=== PATIENT | female | born 1940 | race Caucasian/White ===

== ENCOUNTER 2016-10-12 10:46 | Inpatient (IN) | payer OTHER ==
[2016-10-12 11:38] LABS: MANUAL DIFF NEEDED? NO
[2016-10-12 11:38] LABS: URINE CULTURE PL NEEDED? NO; URINE SOURCE CLEAN CATCH
[2016-10-12 11:40] LABS: BASO% 0.3 % (0.0-0.8); EOS# 0.12 X1000 (0.0-0.7); EOS% 0.9 % (0.0-10.0); HEMATOCRIT 39.4 % (37.0-47.0); HEMOGLOBIN 13.1 g/dL (12.0-16.0); IMM GRAN# 0.02 X1000 (0.0-0.04); IMM GRAN% 0.2 % (0.0-0.5); LYMPH# 1.86 X1000 (1.2-3.4); LYMPH% 14.7 % (20.5-51.1); MCH 31.3 PG (27-31); MCHC 33.2 g/dL (33-37); MONO# 0.43 X1000 (0.11-0.59); MONO% 3.4 % (1.7-9.3); MPV 9.8 FL (7.4-10.4); NEUT% 80.5 % (42.2-75.2); PLT 285 X1000 (130-400); RBC 4.19 XMIL (4.2-5.4)
--- NOTE | 2016-10-12 11:40 | PROVIDER DOCUMENTATION ---
HPI-General Adult - General Chief Complaint: Altered Mental Status Stated Complaint: BODY SHAKING Time Seen by Provider: 10/12/16 11:20 Source: patient Allergies/Adverse Reactions: Patient Allergies Allergy/AdvReac Type Severity Reaction Status Date / Time No Known Allergies Allergy Verified 10/12/16 11:13 Home Medications: Home Medication List Medication Instructions Recorded Confirmed Last Taken Type Diclofenac Sodium [Voltaren] 75 mg PO BID 09/22/16 09/22/16 Unknown History Levothyroxine [Synthroid] 150 mg PO DAILY 09/22/16 09/22/16 Unknown History Multivitamins/Minerals [Centrum 1 each PO DAILY 09/22/16 09/22/16 Unknown History Chewable] SIMVAstatin [Zocor] 40 mg PO QHS 09/22/16 09/22/16 09/21/16 21:00 History Trazodone [Desyrel] 100 mg PO QHS 09/22/16 09/22/16 09/21/16 21:00 History Buspirone [Buspar] 15 mg PO BID #60 tablet 09/25/16 Unknown Rx Morphine E.r. [Ms Contin] 15 mg PO BID PRN #45 tablet 09/25/16 Unknown Rx Oxycodone/APAP 10 mg/325 mg 10 mg PO Q6H PRN PRN #60 tablet 09/25/16 Unknown Rx [Percocet-10] - History of Present Illness -Gen Adult Nature of Presenting Problems: Pt. is 75 yof that presents with c/o AMS. Pt. was discharged from a rehab facility on Sunday and last night she began acting strange to her family. Pt. reports she was in rehab to help her with ambulation. Pt. reports now she is shaking and having trouble staying awake. Pt. is on multiple altering medications. Location of Pain/Injury: reports: back. denies: head, face, mouth, neck, chest , upper extremity, hand(s), abdomen, pelvis, genitalia, lower extremity, feet, upper body, lower body, generalized Pain Radiation: reports: no radiation Quality of Pain: reports: aching. denies: burning, cramping, dull, fullness, indigestion, pressure, sharp, stabbing, tearing, throbbing, tightness Severity: reports: moderate. denies: mild, severe Onset/Duration: reports: abrupt, 2 days ago (AMS began two days ago, back pain is chronic) Timing: reports: still present. denies: improving, gone now, resolved prior to arrival, intermittent, constant, changing over time, getting worse Context/Activities at Onset: reports: none. denies: recent emotional stress, recent physical stress, recent trauma history, possible bad food, cold exposure , out of country travel Modifying Factors: improves with: nothing Associated Symptoms: reports: back/neck pain, weakness, trouble walking, other ( AMS). denies: anxiety, arm pain, chest pain, constipation, cough, diaphoresis, diarrhea, dizziness, EENT symptoms, fatigue, fever/chills, genitourinary problems, headaches, heartburn, joint pain, loss of appetite, malaise, muscle aches, sinus congestion/drainage, nausea, rash, seizure, shortness of breath, sensory/motor loss, pain with inspiration, swelling/mass in abdomen, syncope, vomiting Similar Symptoms Previously?: Yes Recently seen or treated by another doctor?: Yes Review of Systems - Adult - REVIEW OF SYSTEMS - ADULT Constitutional: reports: see HPI. denies: chills, fever, fatique Eyes: reports: see HPI. denies: discharge, blurred vision, double vision Ears, Nose, Mouth & Throat: reports: see HPI. denies: ear pain, hearing loss, sinus problem, nose pain, loose teeth, mouth/dental pain, throat pain, throat swelling Cardiovascular: reports: see HPI. denies: chest pain, irregular heart rate, orthopnea, palpitations, syncope Respiratory: reports: see HPI. denies: cough, dyspnea on exertion, pleurisy, shortness of breath, wheezing Gastrointestinal: reports: see HPI. denies: abdominal pain, hematemesis, diarrhea, nausea, vomiting Genitourinary: reports: see HPI. denies: dysuria, discharge, hematuria, hesitency, urgency Musculoskeletal: reports: see HPI, back pain. denies: bone pain, joint pain, muscle aches, neck pain Integumentary: reports: see HPI. denies: hives, itching, rash, skin thickening Neurological: reports: see HPI. denies: ataxia, headache/migraines, numbness, paresthesia, seizure, tremors Psychiatric: reports: see HPI, other (Failure to thrive). denies: anxiety, depression, emotional problems, insomnia, panic attacks, suicidal thoughts Past History - Adult - PAST MEDICAL HISTORY-ADULT Review of Records: reports: Old Records Reviewed, Nursing Assessment Review, Medications Reviewed, Social history reviewed & non-contributory. Major Childhood Illnesses: reports: denies history Cardiovascular: reports: HTN Respiratory: reports: denies history Gastrointestinal: reports: denies history Obstetrical/Gynecological: reports: denies history Genitourinary: reports: denies history Musculoskeletal: reports: denies history Neurological: reports: denies history Endocrine/Immune: reports: Diabetes Other Conditions: reports: denies history - PRIOR SURGERIES/PROCEDURES Surgical/Procedure History: reports: hysterectomy - IMMUNIZATION STATUS Childhood Immunizations: See Nurse Assessment Flu Vaccine: See Nurse Assessment - FAMILY HISTORY Family History: reviewed, not pertinent - SOCIAL HISTORY Smoking: non-smoker Physical Exam-General - PHYSICAL EXAM-ADULT Initial Vital Signs Reviewed: Yes - CONSTITUTIONAL General Appearance: mild distress, lethargic, slow to respond. negative: cachetic, anxious, obtunded, combative - EYES Eyes: PERRL/EOMI, pink conjunctivae. negative: conjuctival exudate, sclera injected, scleral icterus, subconjunctival hemorrhage - HEAD, EARS, NOSE, MOUTH & THROAT HENMT: normocephalic/atraumatic, moist mucous membranes. negative: angioedema, frontal tenderness, maxillary tenderness - NECK Neck: non-tender, full range of motion, supple, normal inspection. negative: lymphadenopathy, trachial deviation, thyromegaly - RESPIRATORY Respiratory: lungs clear, normal breath sounds. negative: crackles, rales, rhonchi, stridor, wheezing - CARDIOVASCULAR Cardiovascular: regular rate, rhythm, no edema, no JVD, no murmur, bradycardia. negative: extra beats, friction rub, irregularly irregular - CHEST (BREASTS) Chest/Breast: deferred - GASTROINTESTINAL (ABDOMEN) Abdominal Exam: normal bowel sounds, non tender, soft. negative: distended, guarding, rigid, rebound, tenderness, hernia, mass - GENITOURINARY Female Genitalia/Pelvic Exam: deferred Rectal Exam: deferred Hemoccult Exam: deferred - LYMPHATIC Lymphatic: no adenopathy. negative: axilla node tender, cervical node tenderness - MUSCULOSKELETAL Back Exam: normal inspection, no CVA tenderness, no vertebral tenderness, decreased range of motion. negative: swelling, vertebral tenderness Extremity: normal range of motion, non-tender, normal inspection. negative: deformity, erythema, inflammation, swelling, tenderness Peripheral Pulses: radial (R): 2+, radial (L): 2+ - SKIN Integumentary: normal color, normal turgor, warm/dry. negative: cyanosis, diaphoresis, ecchymosis, erythema, jaundice, mottled, pallor, petechiae, purpura , rash, swelling, tenderness - NEUROLOGIC Neurologic: grossly normal, no motor/sensory deficits. negative: aphasia, facial droop, focal weakness, motor weakness, sensory deficit - PSYCHIATRIC Psych/Mental Status: normal mood/affect, normal thought content, normal thought process, oriented x 3. negative: anxious, paranoid, tearful Progress - PLAN OF CARE/RESULTS Progress/Plan/Lab Results: Dr. Tovar at bedside Discussed results and plan of care with patient. Patient agrees with plan and verbalizes understanding. Vital Signs Temp Pulse Resp BP Pulse Ox 10/12/16 13:23 55 L 21 94/55 100 10/12/16 13:16 49 L 14 87/49 100 10/12/16 13:10 49 L 16 105/42 99 10/12/16 13:04 97.5 F L 10/12/16 13:01 49 L 17 98/45 100 10/12/16 12:53 49 L 18 133/33 100 10/12/16 12:26 49 L 19 94/40 99 10/12/16 12:23 49 L 12 102/36 94 L 10/12/16 12:08 49 L 17 77/58 97 10/12/16 11:23 50 L 13 110/65 99 10/12/16 11:01 97.0 F L 50 L 16 088/041 100 No Known Allergies Allergy (Verified 10/12/16 11:13) Diclofenac Sodium [Voltaren] 75 mg PO BID 09/22/16 Levothyroxine [Synthroid] 150 mg PO DAILY 09/22/16 Multivitamins/Minerals [Centrum Chewable] 1 each PO DAILY 09/22/16 SIMVAstatin [Zocor] 40 mg PO QHS 09/22/16 Trazodone [Desyrel] 100 mg PO QHS 09/22/16 Buspirone [Buspar] 15 mg PO BID #60 tablet 09/25/16 Morphine E.r. [Ms Contin] 15 mg PO BID PRN #45 tablet 09/25/16 Oxycodone/APAP 10 mg/325 mg [Percocet-10] 10 mg PO Q6H PRN PRN #60 tablet Laboratory 10/12/16 10/12/16 10/12/16 12:31 12:31 11:29 WBC RBC Hgb Hct MCV MCH MCHC RDW Std Deviation Plt Count MPV Immature Gran % (Auto) Neut % (Auto) Lymph % (Auto) Worth % (Auto) Eos % (Auto) Baso % (Auto) Immature Gran # (Auto) Neut # (Auto) Lymph # (Auto) Worth # (Auto) Eos # (Auto) Baso # (Auto) Sodium Potassium Chloride Carbon Dioxide Anion Gap BUN Creatinine Estimated GFR/1.73 m2 BUN/Creatinine Ratio Glucose Calculated Osmolality Calcium Total Bilirubin AST ALT Alkaline Phosphatase Creatine Kinase 191 H Creatine Kinase Index 1.3 CK-MB (CK-2) 2.45 Troponin T < 0.010 Total Protein Albumin Globulin Albumin/Globulin Ratio TSH 0.82 Urine Source Urine Color Urine Clarity Urine pH Ur Specific [place] Urine Protein Urine Ketones Urine Blood Urine Nitrite Urine Bilirubin Urine Urobilinogen Urine Microscopic RBC Urine WBC Urine Microscopic WBC Ur Epithelial Cells Urine Glucose Urine Opiates Screen Ur Oxycodone Screen Urine Methadone Screen Ur Barbituates Screen Ur Tricyclics Screen Ur Phencyclidine Scrn Ur Amphetamines Screen U Methamphetamines Scrn Urine MDMA Screen U Benzodiazepines Scrn Urine Cocaine Screen U Cannabinoids Screen 10/12/16 10/12/16 10/12/16 11:29 11:29 11:23 WBC 12.67 H RBC 4.19 L Hgb 13.1 Hct 39.4 MCV 94.0 MCH 31.3 H MCHC 33.2 RDW Std Deviation 12.6 Plt Count 285 MPV 9.8 Immature Gran % (Auto) 0.2 Neut % (Auto) 80.5 H Lymph % (Auto) 14.7 L Worth % (Auto) 3.4 Eos % (Auto) 0.9 Baso % (Auto) 0.3 Immature Gran # (Auto) 0.02 Neut # (Auto) 10.20 H Lymph # (Auto) 1.86 Worth # (Auto) 0.43 Eos # (Auto) 0.12 Baso # (Auto) 0.04 Sodium Potassium Chloride Carbon Dioxide Anion Gap BUN Creatinine Estimated GFR/1.73 m2 BUN/Creatinine Ratio Glucose Calculated Osmolality Calcium Total Bilirubin AST ALT Alkaline Phosphatase Creatine Kinase Creatine Kinase Index CK-MB (CK-2) Troponin T Total Protein Albumin Globulin Albumin/Globulin Ratio TSH Urine Source CLEAN CATCH Urine Color YELLOW Urine Clarity CLEAR Urine pH 5.0 Ur Specific [place] 1.020 Urine Protein TRACE A Urine Ketones NEGATIVE Urine Blood NEGATIVE Urine Nitrite NEGATIVE Urine Bilirubin NEGATIVE Urine Urobilinogen NORMAL Urine Microscopic RBC Not Reportable Urine WBC TRACE A Urine Microscopic WBC <10 Ur Epithelial Cells <10 Urine Glucose NEGATIVE Urine Opiates Screen PRESUMPTIVE POSITIVE A Ur Oxycodone Screen PRESUMPTIVE POSITIVE A Urine Methadone Screen NONE DETECTED Ur Barbituates Screen NONE DETECTED Ur Tricyclics Screen NONE DETECTED Ur Phencyclidine Scrn NONE DETECTED Ur Amphetamines Screen NONE DETECTED U Methamphetamines Scrn NONE DETECTED Urine MDMA Screen NONE DETECTED U Benzodiazepines Scrn NONE DETECTED Urine Cocaine Screen NONE DETECTED U Cannabinoids Screen NONE DETECTED 10/12/16 11:23 WBC RBC Hgb Hct MCV MCH MCHC RDW Std Deviation Plt Count MPV Immature Gran % (Auto) Neut % (Auto) Lymph % (Auto) Worth % (Auto) Eos % (Auto) Baso % (Auto) Immature Gran # (Auto) Neut # (Auto) Lymph # (Auto) Worth # (Auto) Eos # (Auto) Baso # (Auto) Sodium 135 L Potassium 3.7 Chloride 96 L Carbon Dioxide 28 Anion Gap 11 BUN 38 H Creatinine 1.8 H Estimated GFR/1.73 m2 27 BUN/Creatinine Ratio 21 Glucose 133 H Calculated Osmolality 281 Calcium 9.3 Total Bilirubin 0.40 AST 20 ALT 28 Alkaline Phosphatase 92 Creatine Kinase Creatine Kinase Index CK-MB (CK-2) Troponin T Total Protein 7.4 Albumin 3.7 Globulin 4.0 Albumin/Globulin Ratio 1.0 TSH Urine Source Urine Color Urine Clarity Urine pH Ur Specific [place] Urine Protein Urine Ketones Urine Blood Urine Nitrite Urine Bilirubin Urine Urobilinogen Urine Microscopic RBC Urine WBC Urine Microscopic WBC Ur Epithelial Cells Urine Glucose Urine Opiates Screen Ur Oxycodone Screen Urine Methadone Screen Ur Barbituates Screen Ur Tricyclics Screen Ur Phencyclidine Scrn Ur Amphetamines Screen U Methamphetamines Scrn Urine MDMA Screen U Benzodiazepines Scrn Urine Cocaine Screen U Cannabinoids Screen Orders Category Date Time Status Saline Loc NOW Care 10/12/16 11:21 Active CHEST-2 VIEWS [RAD] Stat Exams 10/12/16 11:36 Completed HEAD W/O CONTRAST [CT] Stat Exams 10/12/16 11:22 Draft BLOOD CULTURE [BLDCUL] Stat Lab 10/12/16 13:39 Ordered CBC WITH ELECTRONIC DIFF [HEME] Stat Lab 10/12/16 11:23 Completed CK PROFILE [SP CHEM] Stat Lab 10/12/16 12:31 Completed COMPREHENSIVE METABOLIC PANEL [CHEM] Stat Lab 10/12/16 11:23 Completed LACTATE, PLASMA [CHEM] Stat Lab 10/12/16 13:39 Ordered PRO B-NATRIURETIC PEPTIDE Stat Lab 10/12/16 13:39 Ordered TROPONIN T Stat Lab 10/12/16 12:31 Completed TSH Stat Lab 10/12/16 11:29 Completed UDS [URINE DRUG SCREEN PL] Stat Lab 10/12/16 11:[address] W/POSS RFLX CULT [URINALYSIS] Stat Lab 10/12/16 11:29 Completed 0.9% Sodium Chloride Inj [Ns] 1,000 ml Med 10/12/16 12:24 Discontinued IV 999 mls/hr 0.9% Sodium Chloride Inj [Ns] 500 ml Med 10/12/16 13:37 Discontinued .ROUTE As Directed 0.9% Sodium Chloride Inj [Ns] 500 ml Med 10/12/16 13:38 Active IV 999 mls/hr EKG [EKG] Stat Ther 10/12/16 11:36 Draft Laboratory Tests 10/12/16 10/12/16 10/12/16 11:23 11:23 11:29 WBC 12.67 H RBC 4.19 L Hgb 13.1 Hct 39.4 MCV 94.0 MCH 31.3 H MCHC 33.2 RDW Std Deviation 12.6 Plt Count 285 MPV 9.8 Immature Gran % (Auto) 0.2 Neut % (Auto) 80.5 H Lymph % (Auto) 14.7 L Worth % (Auto) 3.4 Eos % (Auto) 0.9 Baso % (Auto) 0.3 Immature Gran # (Auto) 0.02 Neut # (Auto) 10.20 H Lymph # (Auto) 1.86 Worth # (Auto) 0.43 Eos # (Auto) 0.12 Baso # (Auto) 0.04 Sodium 135 L Potassium 3.7 Chloride 96 L Carbon Dioxide 28 Anion Gap 11 BUN 38 H Creatinine 1.8 H Estimated GFR/1.73 m2 27 BUN/Creatinine Ratio 21 Glucose 133 H Calculated Osmolality 281 Calcium 9.3 Total Bilirubin 0.40 AST 20 ALT 28 Alkaline Phosphatase 92 Creatine Kinase Creatine Kinase Index CK-MB (CK-2) Troponin T Total Protein 7.4 Albumin 3.7 Globulin 4.0 Albumin/Globulin Ratio 1.0 TSH Urine Source CLEAN CATCH Urine Color YELLOW Urine Clarity CLEAR Urine pH 5.0 Ur Specific [place] 1.020 Urine Protein TRACE A Urine Ketones NEGATIVE Urine Blood NEGATIVE Urine Nitrite NEGATIVE Urine Bilirubin NEGATIVE Urine Urobilinogen NORMAL Urine Microscopic RBC Not Reportable Urine WBC TRACE A Urine Microscopic WBC <10 Ur Epithelial Cells <10 Urine Glucose NEGATIVE Urine Opiates Screen Ur Oxycodone Screen Urine Methadone Screen Ur Barbituates Screen Ur Tricyclics Screen Ur Phencyclidine Scrn Ur Amphetamines Screen U Methamphetamines Scrn Urine MDMA Screen U Benzodiazepines Scrn Urine Cocaine Screen U Cannabinoids Screen 10/12/16 10/12/16 10/12/16 11:29 11:29 12:31 WBC RBC Hgb Hct MCV MCH MCHC RDW Std Deviation Plt Count MPV Immature Gran % (Auto) Neut % (Auto) Lymph % (Auto) Worth % (Auto) Eos % (Auto) Baso % (Auto) Immature Gran # (Auto) Neut # (Auto) Lymph # (Auto) Worth # (Auto) Eos # (Auto) Baso # (Auto) Sodium Potassium Chloride Carbon Dioxide Anion Gap BUN Creatinine Estimated GFR/1.73 m2 BUN/Creatinine Ratio Glucose Calculated Osmolality Calcium Total Bilirubin AST ALT Alkaline Phosphatase Creatine Kinase 191 H Creatine Kinase Index 1.3 CK-MB (CK-2) 2.45 Troponin T Total Protein Albumin Globulin Albumin/Globulin Ratio TSH 0.82 Urine Source Urine Color Urine Clarity Urine pH Ur Specific [place] Urine Protein Urine Ketones Urine Blood Urine Nitrite Urine Bilirubin Urine Urobilinogen Urine Microscopic RBC Urine WBC Urine Microscopic WBC Ur Epithelial Cells Urine Glucose Urine Opiates Screen PRESUMPTIVE POSITIVE A Ur Oxycodone Screen PRESUMPTIVE POSITIVE A Urine Methadone Screen NONE DETECTED Ur Barbituates Screen NONE DETECTED Ur Tricyclics Screen NONE DETECTED Ur Phencyclidine Scrn NONE DETECTED Ur Amphetamines Screen NONE DETECTED U Methamphetamines Scrn NONE DETECTED Urine MDMA Screen NONE DETECTED U Benzodiazepines Scrn NONE DETECTED Urine Cocaine Screen NONE DETECTED U Cannabinoids Screen NONE DETECTED 10/12/16 12:31 WBC RBC Hgb Hct MCV MCH MCHC RDW Std Deviation Plt Count MPV Immature Gran % (Auto) Neut % (Auto) Lymph % (Auto) Worth % (Auto) Eos % (Auto) Baso % (Auto) Immature Gran # (Auto) Neut # (Auto) Lymph # (Auto) Worth # (Auto) Eos # (Auto) Baso # (Auto) Sodium Potassium Chloride Carbon Dioxide Anion Gap BUN Creatinine Estimated GFR/1.73 m2 BUN/Creatinine Ratio Glucose Calculated Osmolality Calcium Total Bilirubin AST ALT Alkaline Phosphatase Creatine Kinase Creatine Kinase Index CK-MB (CK-2) Troponin T < 0.010 Total Protein Albumin Globulin Albumin/Globulin Ratio TSH Urine Source Urine Color Urine Clarity Urine pH Ur Specific [place] Urine Protein Urine Ketones Urine Blood Urine Nitrite Urine Bilirubin Urine Urobilinogen Urine Microscopic RBC Urine WBC Urine Microscopic WBC Ur Epithelial Cells Urine Glucose Urine Opiates Screen Ur Oxycodone Screen Urine Methadone Screen Ur Barbituates Screen Ur Tricyclics Screen Ur Phencyclidine Scrn Ur Amphetamines Screen U Methamphetamines Scrn Urine MDMA Screen U Benzodiazepines Scrn Urine Cocaine Screen U Cannabinoids Screen - XRAY 1 XRAY Study: Chest XRAY Interpretation: NAD (Far[place]) - CT/MRI 1 CT Study: Head CT Results: Unchanged (Nay) - CONSULTS/PCP/HOSPITALIST Notification #1 *Consult/PCP/Hospitalist*: Dr. Mcgowan Time Discussed: 15:26 Reason/Comments: Admission Consult Disposition: Will see in ED, Admit Departure - Departure Time of Disposition Order: 13:40 DIAGNOSIS: Renal insufficiency, Weakness Hypotension Qualifiers: Hypotension type: unspecified hypotension type Qualified Code(s): I95.9 - Hypotension, unspecified Altered mental status Qualifiers: Altered mental status type: unspecified Qualified Code(s): R41.82 - Altered mental status, unspecified Disposition: ADMITTED INPATIENT 09 Certified Medical Emergency: Emergent Condition: Stable Referrals: Rome Kellogg [Primary Care Provider] - Attestation - Physician/ ADELITA Attestation Patient care was provided by Advanced Practice Provider:: Yes Advanced Practice Provider:: Megha Murphy Advanced Practice Provider documentation review:: The Mid-level provider documentation, treatment plan and medical decision making was reviewed by the physician who agrees with all treatment and medical decision making by the [facility]. The physician spent face to face time with patient:: Yes
[2016-10-12 11:45] LABS: UR AMPHETAMINES QUAL NONE DETECTED (NONE DETECT); UR BARBITUATES QUAL NONE DETECTED (NONE DETECT); UR BENZODIAZEPIN QUAL NONE DETECTED (NONE DETECT); UR CANNABINOIDS QUAL NONE DETECTED (NONE DETECT); UR COCAINE QUAL NONE DETECTED (NONE DETECT); UR MDMA QUAL NONE DETECTED (NONE DETECT); UR METHADONE QUAL NONE DETECTED (NONE DETECT); UR METHAMPHETAMINE QUAL NONE DETECTED (NONE DETECT); UR OPIATES QUAL PRESUMPTIVE POSITIVE (NONE DETECT); UR OXYCODONE QUAL PRESUMPTIVE POSITIVE (NONE DETECT); UR PCP QUAL NONE DETECTED (NONE DETECT); UR TCA QUAL NONE DETECTED (NONE DETECT)
--- NOTE | 2016-10-12 11:52 | EKG Report ---
Test Performed on : 10/12/2016 11:41:14 AM Test Reason : AMS Blood Pressure : / mmHG Vent. Rate : 049 BPM Atrial Rate : 049 BPM P-R Int : 246 ms QRS Dur : 134 ms QT Int : 494 ms P-R-T Axes : 059 -65 006 degrees QTc Int : 446 ms Sinus bradycardia. with 1st degree AV block. Left axis deviation Right bundle branch block Abnormal ECG No previous ECGs available Unconfirmed Result
[2016-10-12 11:59] LABS: BILIRUBIN URINE NEGATIVE (NEGATIVE); BLOOD URINE NEGATIVE (NEGATIVE); CLARITY CLEAR (CLEAR); COLOR YELLOW; GLUCOSE URINE NEGATIVE (NEGATIVE); LEUKOCYTES URINE TRACE (NEGATIVE); NITRITE URINE NEGATIVE (NEGATIVE); PROTEIN URINE TRACE mg/dL (NEGATIVE); UROBILINOGEN URINE NORMAL
[2016-10-12 12:00] LABS: ALBUMIN 3.7 g/dL (3.5-5.0); CALCIUM 9.3 mg/dL (8.8-10.2); POTASSIUM 3.7 mmol/L (3.5-5.1); TOTAL BILIRUBIN 0.4 mg/dL (0.20-1.00); TOTAL PROTEIN 7.4 g/dL (6.3-8.3)
[2016-10-12 12:17] LABS: URINE EPITHELIAL CELLS <10 /HPF (<10); URINE WBC <10 /HPF (<10)
[2016-10-12] MEDS ORDERED: NS 1,000 ML IV ONE ×4 (12:24→20:27)
--- NOTE | 2016-10-12 12:30 | ED EKG INTERP ---
EKG Interpretation - EKG Time of EKG reading by physician:: 11:41 EKG Read and Signed by:: Apolonia Tovar EKG Interpretation (*Must complete 3 of following elements*): Abnormal Rate: 49 Rhythm: sinus tachy with 1st deg av block [place]: left QRS: RBB [place] Interval: normal ST Wave: normal Attestation - Scribe Verification/Attestation Scribe:: Celso Clay Acting as Scribe for:: Apolonia Tovar Scribe documention review:: This chart was documented by a scribe and accurately reflects the service the provider performed and the decisions made by the provider.
--- NOTE | 2016-10-12 13:13 | Diag Imaging Result Document ---
PROCEDURE NAME: HEAD W/O CONTRAST - 10/12/[address]: COMPARISON: 09/22/2016. FINDINGS: There is some stable trace periventricular white matter chronic microvascular disease. No intracranial mass or hemorrhage. The ventricles and sulci are normal size and contour. The skull is intact. The sinuses, mastoids, and middle ears are clear. IMPRESSION: No acute disease or change from prior.
[2016-10-12 13:18] LABS: CK INDEX 1.3 (0.0-2.5); CK-MB 2.45 ng/mL (0.0-5.0)
--- NOTE | 2016-10-12 13:20 | Diag Imaging Result Document ---
PROCEDURE NAME: CHEST-2 VIEWS - 10/12/2016 FRONTAL AND LATERAL CHEST, TWO VIEWS: COMPARISON: 09/22/2016. FINDINGS: The lungs are well expanded. The heart is not enlarged. The vessels are not distended. No pneumonia. No pleural effusions. The right hemidiaphragm is elevated. There has been extensive surgery to the lower thoracic and lumbar spine. There are surgical clips in the right upper abdomen. IMPRESSION: No acute abnormality.
[2016-10-12] MEDS ORDERED: NS 500 ML ONE (13:37)
[2016-10-12] MEDS ORDERED: NS 500 ML IV ONE (13:38)
[2016-10-12] MEDS ORDERED: NARCAN IV ONE (14:29)
[2016-10-12] MEDS ORDERED: NS 1,000 ML ONE (15:27)
[2016-10-12] MEDS ORDERED: DOPAMINE 800 MG/D5W (PARKWAY ONLY!) 250 ML IV SCH (17:00)
[2016-10-12] MEDS ORDERED: ZOFRAN IV PRN (20:11)
[2016-10-12] MEDS ORDERED: PERCOCET-10 PO PRN ×2 (20:29→20:51)
[2016-10-12] MEDS: HUMALOG SUBQ SCH (20:48)
[2016-10-12] MEDS: ZOCOR PO SCH (20:48)
[2016-10-12] MEDS: HEPARIN SUBQ SCH (20:48)
[2016-10-12] MEDS ORDERED: DESYREL PO SCH (21:00)
[2016-10-12] MEDS ORDERED: BUSPAR PO SCH (21:00)
--- NOTE | 2016-10-12 22:07 | HISTORY AND PHYSICAL ---
PRIMARY CARE PHYSICIAN: Rome Kellogg M.D. CHIEF COMPLAINT: Shaking in upper extremities. HISTORY OF PRESENT ILLNESS: This is a 75-year-old, female who was last admitted to our service on 09/22/2016 for similar complaint. She was discharged from here to rehabilitation. She has been home from rehabilitation since this last Sunday but according to the patient she has been very fatigued and has wanted to mostly sleep. She states that last night she started having trouble holding her water glass. She does admit that again she had not slept since Sunday. Her family had not been home and she does not really recall drinking very much fluid. The reason for last admission ended up being acute kidney injury. Labs were drawn in the emergency room which again showed her to be at 2 to again have acute kidney injury with a creatinine of 1.8. On discharge she had a creatinine of 1.00 on 09/25/2016. The patient was also hypotensive with a blood pressure in the 70s and 80s. She was started on dopamine in the emergency room and sent to [facility]'s ICU. She will be admitted inpatient for further evaluation and treatment. PAST MEDICAL HISTORY: 1. Hypertension. 2. Diabetes mellitus. 3. Chronic pain with chronic opioid use. 4. Arthritis, acute kidney injury. PAST SURGICAL HISTORY: Hysterectomy. SOCIAL HISTORY: . Her and her live with their son related to their poor health. She denies alcohol, tobacco or illicit drug use or abuse. ALLERGIES: No known drug allergies. FAMILY HISTORY: The patient is mildly confused however answers most questions appropriately and denies any family history. She states that both parents from cancer of unknown origin. HOME MEDICATIONS: 1. Zocor 40 mg p.o. at bedtime. 2. Synthroid 150 mg p.o. daily. 3. Voltaren 75 mg p.o. b.i.d. 4. Centrum 1 p.o. daily. 5. MS Contin 15 mg p.o. b.i.d. p.r.n. 6. Percocet 10 mg p.o. q.6 p.r.n. REVIEW OF SYSTEMS: Fourteen point review of systems conducted with the patient. Pertinent positives listed above in the HPI. She denied chest pain, nausea, vomiting, diarrhea, hematemesis, hematochezia, melena, diarrhea, frequency, urgency, dysuria. PHYSICAL EXAMINATION: VITAL SIGNS: Temp 97, pulse 54, respirations 20, blood pressure 106/34, oxygen saturation 99% on 2 L nasal cannula. GENERAL: A pleasant, but mildly confused female, lying in the ICU bed. Answers most questions appropriately. HEENT: Head is atraumatic, normocephalic. Pupils equal, round, reactive to light. Extraocular eye movement intact. Sclerae is anicteric. Conjunctivae is pink. Oral mucosa is dry. NECK: Supple. No JVD. No thyromegaly. Trachea is midline. No cervical lymphadenopathy. CARDIAC: S1-S2 appreciated. No murmurs, gallops, rubs. Heart tones were noted as being distant. LUNGS: Clear to auscultation bilaterally. No rhonchi, wheezes or rales. Symmetrical rise and fall with respirations. ABDOMEN: Soft, nondistended, nontender. Bowel sounds present in all 4 quadrants. Normoactive. No pulsatile mass. No organomegaly. EXTREMITIES: No clubbing, cyanosis, edema. 1+ pedal pulses bilaterally. GENITOURINARY: Streeter catheter is in place draining clear yellow urine. NEUROLOGICAL: Mildly confused. Oriented to person, place, somewhat disoriented to situation. Cranial nerves 2-12 appear to be grossly intact. Patient noted as having asterixis on neurological examination. DIAGNOSTIC DATA: Chest x-ray: NAD. CT of the head. No change from prior examination which showed trace microvascular changes. LABORATORY DATA: WBC 12.67, hemoglobin 13.1, hematocrit 39.4, platelet count 285,000. Sodium 135, potassium 3.7, chloride 96, carbon dioxide 28, BUN 38, creatinine 1.8. Glucose 133. Urine unremarkable. Toxicology screen positive for oxycodone which is patient's home medication. ASSESSMENT: 1. Acute renal failure. 2. Fluid volume depletion. 3. Chronic pain with chronic narcotic use. 4. Diabetes mellitus type 2 with hyperglycemia. The patient does not appear to be on a outpatient treatment for diabetes mellitus. We will check a hemoglobin A1c. PLAN: Admit patient to the ICU. Continue dopamine while the patient is being rehydrated. Wean as tolerated. As noted above, we will check a hemoglobin A1c. The patient is uremic. Hopefully this will correct with fluid resuscitation. q.4 hours blood sugar checks with sliding scale coverage. We will continue oxycodone p.r.n. as needed for pain. Continue Synthroid for hypothyroidism. Further recommendations per patient's clinical course. Dictated by RADHA Padron for Ashleigh Joseph MD
[2016-10-12 22:09] LABS: HEMOGLOBIN A1C 6.3 % (4.8-6.0)
[2016-10-13] MEDS: HUMALOG SUBQ SCH ×6 (00:54→21:00)
[2016-10-13 05:18] LABS: BASO% 0.1 % (0.0-0.8); HEMATOCRIT 38.6 % (37.0-47.0); HEMOGLOBIN 13.3 g/dL (12.0-16.0); IMM GRAN# 0.05 X1000 (0.0-0.04); IMM GRAN% 0.3 % (0.0-0.5); LYMPH# 1.34 X1000 (1.2-3.4); LYMPH% 6.7 % (20.5-51.1); MANUAL DIFF NEEDED? YES; MCH 31.7 PG (27-31); MCHC 34.5 g/dL (33-37); MCV 91.9 FL (81-99); MONO# 0.77 X1000 (0.11-0.59); MONO% 3.9 % (1.7-9.3); MPV 10.1 FL (7.4-10.4); PLT 301 X1000 (130-400)
[2016-10-13 06:01] LABS: AGAP 18; BUN 23 mg/dL (8-22); CALCIUM 8.6 mg/dL (8.8-10.2); CHLORIDE 99 mmol/L (98-107); COSMO 284; POTASSIUM 3.6 mmol/L (3.5-5.1); SODIUM 139 mmol/L (136-145); TCO2 22 mmol/L (25-35)
[2016-10-13 06:42] LABS: BANDS 4 % (0-1); LYMPHS 14 % (21-51); MONO 2 % (1-9)
[2016-10-13] MEDS ORDERED: DOPAMINE 800 MG/D5W 500 ML IV SCH (07:00)
[2016-10-13] MEDS ORDERED: SOLU-CORTEF IV ONE (08:38)
[2016-10-13] MEDS: HEPARIN SUBQ SCH ×2 (08:42→21:04)
[2016-10-13] MEDS: BUSPAR PO SCH ×2 (08:45→21:04)
[2016-10-13] MEDS: THERA M PLUS PO SCH (08:45)
[2016-10-13] MEDS: SYNTHROID PO SCH (08:45)
[2016-10-13] MEDS ORDERED: VANCOMYCIN IV PER PHARMACY MISC SCH (10:00)
[2016-10-13] MEDS: NS 1,000 ML IV SCH ×2 (10:16→16:41)
[2016-10-13] MEDS: MERREM 1 GM in NS 50 ML IV SCH ×2 (10:46→17:06)
[2016-10-13] MEDS ORDERED: VANCOMYCIN 1,600 MG in NS 250 ML IV ONE (12:00)
--- NOTE | 2016-10-13 12:11 | PROGRESS NOTE ---
DATE: 10/13/2016 SUBJECTIVE: Patient is very sleepy although answers to verbal stimuli. She denies hurting anywhere, fever or chills. OBJECTIVE: Vital Signs: Temperature 98.5 degrees, heart rate 91, respiratory rate 12, blood pressure 160/51, O2 saturation 96% on 2 L nasal cannula. General Examination: This is a 75-year- old female lying in bed, in no acute distress. Lethargic but does follow commands. HEENT: Head is normocephalic, atraumatic. Anicteric sclerae and pale conjunctivae. Mucous membranes moist. Neck: Supple. No JVD noted. No carotid bruits. No lymphadenopathy. No thyromegaly. Cardiovascular Exam: S1-S2 heard. No murmurs, gallops, or rubs. Regular rate and rhythm. Respiratory: Clear bilaterally to auscultation. No work of breathing or using accessory muscles. Abdomen: Soft, nontender to palpation. Bowel sounds present. No organomegaly. Extremities: No clubbing, cyanosis, or edema. Peripheral pulses present in both legs. Neurological: Patient is very sleepy but answers to verbal stimuli and follow commands. Moves 4 extremities. LABORATORY DATA: White cell count 19.91, hemoglobin 13.3, hematocrit 38.6, platelets 301,000. BMP unremarkable with normal renal function 0.9. ASSESSMENT AND PLAN: 1. Acute kidney injury. 2. Fluid volume depletion. 3. Leukocytosis. 4. Altered mental status. 5. Diabetes mellitus type 2. Patient basically admitted to the hospital because of severe hypotension that we could not explain at admission. Also, she was noted to have acute renal failure. Actually she had this problem 2 weeks ago when she was admitted for some reason. In any case, she was started from admission from the ER with dopamine and blood pressure is coming up slowly. At this point, considering that she also had leukocytosis that is getting worse, we prefer to put this patient on broad-spectrum antibiotics while we wait for results of the blood cultures. On the mental status, this patient is lethargic because of these extremely huge amounts of pain medication she was getting. Considering her age, she is 75, she was getting MS Contin 15 mg p.o. p.r.n. and also Percocet 10, 3-4 times per day. I think it is too much pain medication for an elderly patient. Patient has been stopped with all of them and put on tramadol 50 q. 6 hours p.r.n. I think also chronic opiate use can predispose patient to develop adrenal insufficiency so we have provided 1 dose of hydrocortisone just to see if that can help. At this point, we are going to continue watching this patient in the ICU. We will check on her tomorrow. MTDD
[2016-10-13] MEDS ORDERED: NON-FORMULARY MED INJ ONE (12:15)
[2016-10-13] MEDS ORDERED: NS 250 ML ONE ×2 (13:31→15:20)
[2016-10-13 14:08] LABS: INR 1.13
[2016-10-13] MEDS: ULTRAM PO PRN ×2 (17:00→22:36)
[2016-10-13] MEDS: ZOCOR PO SCH (21:04)
[2016-10-13] MEDS: TYLENOL PO PRN (21:04)
[2016-10-14] MEDS: TYLENOL PO PRN (01:27)
[2016-10-14] MEDS: HUMALOG SUBQ SCH ×6 (02:34→22:18)
[2016-10-14] MEDS: MERREM 1 GM in NS 50 ML IV SCH ×3 (02:35→18:45)
[2016-10-14] MEDS: ULTRAM PO PRN ×2 (05:50→22:17)
[2016-10-14] MEDS: NS 1,000 ML IV SCH ×2 (06:47→07:24)
[2016-10-14] MEDS: HEPARIN SUBQ SCH ×2 (08:01→22:16)
[2016-10-14] MEDS: SYNTHROID PO SCH (08:01)
[2016-10-14] MEDS: BUSPAR PO SCH ×2 (08:01→22:16)
[2016-10-14 09:27] LABS: BASO% 0.1 % (0.0-0.8); EOS# 0.01 X1000 (0.0-0.7); EOS% 0.1 % (0.0-10.0); HEMOGLOBIN 10.8 g/dL (12.0-16.0); IMM GRAN# 0.05 X1000 (0.0-0.04); IMM GRAN% 0.3 % (0.0-0.5); LYMPH# 1.45 X1000 (1.2-3.4); LYMPH% 8.7 % (20.5-51.1); MANUAL DIFF NEEDED? YES; MCH 31.5 PG (27-31); MCHC 33.8 g/dL (33-37); MCV 93.3 FL (81-99); MONO# 0.62 X1000 (0.11-0.59); MONO% 3.7 % (1.7-9.3); NEUT% 87.1 % (42.2-75.2); PLT 234 X1000 (130-400); RBC 3.43 XMIL (4.2-5.4)
[2016-10-14] MEDS: THERA M PLUS PO SCH (09:32)
[2016-10-14 10:34] LABS: AGAP 14; BUN 15 mg/dL (8-22); CALCIUM 7.9 mg/dL (8.8-10.2); CHLORIDE 104 mmol/L (98-107); COSMO 290; POTASSIUM 2.9 mmol/L (3.5-5.1); SODIUM 143 mmol/L (136-145); TCO2 25 mmol/L (25-35)
[2016-10-14] MEDS: LYRICA PO SCH ×2 (10:46→22:17)
[2016-10-14 11:06] LABS: BANDS 6 % (0-1); LYMPHS 16 % (21-51)
[2016-10-14] MEDS ORDERED: VANCOMYCIN 1,100 MG in NS 250 ML IV SCH (12:00)
--- NOTE | 2016-10-14 12:23 | PROGRESS NOTE ---
DATE: 10/14/2016 SUBJECTIVE: The patient definitely is alert and oriented x3, back to her baseline according to the son, who is at the bedside. She denies any cough, fever, or pain when she urinates. OBJECTIVE: Vital signs: Temperature 98.7, heart rate 64, respiratory rate 25, blood pressure 131/51, O2 saturation 97% on 2 L nasal cannula. General: This is a 75-year-old female lying in bed in no acute distress. HEENT: Head is normocephalic and atraumatic. Noninjected sclerae. Pale conjunctivae. Mucous membranes moist. Neck: Supple, no JVD noted. No carotid bruits, no lymphadenopathy, no thyromegaly. Cardiovascular: S1, S2 heard. No murmurs, gallops, or rubs. Regular rate and rhythm. Respiratory: Clear bilaterally to auscultation. No work of breathing or using accessory muscles. Abdomen: Soft, nontender to palpation. Bowel sounds present, no organomegaly. Extremities: No clubbing, cyanosis or edema. Peripheral pulses present in both legs. Neurologic: The patient definitely is more alert, awake, moves all 4 extremities. LABORATORY DATA: White cell count 16.76, hemoglobin 10.8, hematocrit 32.0, platelets 234. BMP pending. ASSESSMENT AND PLAN: 1. Acute kidney injury. 2. Volume depletion. 3. Leukocytosis. 4. Altered mental status. 5. Low potassium. The patient was admitted to the hospital for hypotension, but there was no source of infection to suspect any septic shock. In any case, the blood pressure is back to normal and she is not requiring any vasopressors. Because of high leukocytosis we are going to continue with vancomycin and meropenem. Blood cultures are pending so far by now. She is not complaining of any cough or any urinary symptoms. At this time we will defer to continue with the same antibiotic coverage. For acute kidney injury the BMP is still pending today, but was getting better in comparison with from the day before yesterday She has not developed any fever. Altered mental status is completely resolved. At this point we will transfer this patient to a regular floor. I think one may contributor to this AMS has been also the fact that she has been on very stronger pain medication, like MS Contin and Percocet. We will discuss this when the patient is to be discharged. Indeed, the patient is not complaining of any pain right now.
[2016-10-14] MEDS: POTASSIUM CHLORIDE 60 MEQ in NS 500 ML IV SCH ×2 (15:48→22:17)
[2016-10-14] MEDS: FLAGYL PO SCH (18:54)
[2016-10-14] MEDS: ZOCOR PO SCH (22:16)
[2016-10-15] MEDS: NS 1,000 ML IV SCH ×2 (00:21→14:30)
[2016-10-15] MEDS: HUMALOG SUBQ SCH ×6 (03:44→20:58)
[2016-10-15] MEDS: MERREM 1 GM in NS 50 ML IV SCH (03:44)
[2016-10-15 06:05] LABS: MANUAL DIFF NEEDED? NO
[2016-10-15 06:15] LABS: BASO% 0.2 % (0.0-0.8); EOS# 0.06 X1000 (0.0-0.7); EOS% 0.6 % (0.0-10.0); HEMATOCRIT 27.4 % (37.0-47.0); HEMOGLOBIN 9.1 g/dL (12.0-16.0); IMM GRAN# 0.02 X1000 (0.0-0.04); IMM GRAN% 0.2 % (0.0-0.5); LYMPH# 1.69 X1000 (1.2-3.4); LYMPH% 16.8 % (20.5-51.1); MCH 31.5 PG (27-31); MCHC 33.2 g/dL (33-37); MCV 94.8 FL (81-99); MONO# 0.54 X1000 (0.11-0.59); MONO% 5.4 % (1.7-9.3); MPV 9.9 FL (7.4-10.4); NEUT% 76.8 % (42.2-75.2); PLT 196 X1000 (130-400); RBC 2.89 XMIL (4.2-5.4)
[2016-10-15 06:37] LABS: AGAP 10; BUN 10 mg/dL (8-22); CALCIUM 7.7 mg/dL (8.8-10.2); CHLORIDE 109 mmol/L (98-107); COSMO 290; POTASSIUM 3.2 mmol/L (3.5-5.1); SODIUM 144 mmol/L (136-145); TCO2 25 mmol/L (25-35)
[2016-10-15] MEDS: HEPARIN SUBQ SCH ×2 (10:36→20:40)
[2016-10-15] MEDS: SYNTHROID PO SCH (10:36)
[2016-10-15] MEDS: LYRICA PO SCH ×2 (10:37→20:40)
[2016-10-15] MEDS: THERA M PLUS PO SCH (10:37)
[2016-10-15] MEDS: FLAGYL PO SCH ×3 (10:37→20:40)
[2016-10-15] MEDS: BUSPAR PO SCH ×2 (10:37→20:40)
--- NOTE | 2016-10-15 15:20 | PROGRESS NOTE ---
DATE: 10/15/2016 SUBJECTIVE: The patient is alert and oriented x3. He reports having a yesterday a bout of diarrhea, completely clear, almost half an hour yesterday and, today, it is like one to one and a half an hour bowel movement. She denies any fever, chills, or any abdominal pain. OBJECTIVE: Vital Signs: Temperature 99.6 degrees, heart rate 59, respiratory rate 22, blood pressure 107/45, O2 saturation 95% on room air. General: This is a 75-year-old female lying in bed in no acute distress. HEENT: Head is normocephalic, atraumatic. Anicteric sclerae. Pale conjunctivae. Mucous membranes moist. Neck supple. No JVD noted. No carotid bruits. No lymphadenopathy. No thyromegaly. Cardiovascular: S1, S2 heard. No murmurs, gallops, or rubs. Regular rate and rhythm. Respiratory: Clear bilaterally to auscultation. No work of breathing or using accessory muscles. Abdomen is soft, nontender to palpation. Bowel sounds present. No organomegaly. Extremities: No clubbing, cyanosis, or edema. Peripheral pulses present in all legs. Neurologic: The patient is alert and oriented x3. Able to move her extremities. Cranial nerves 2-12 grossly normal. LABORATORY DATA: White cell count 10.03, hemoglobin 9.1, hematocrit 27.4, platelets 190,000. BMP unremarkable except potassium 3.2 and glucose 160. ASSESSMENT AND PLAN: 1. Clostridium difficile colitis. 2. Acute kidney injury. 3. Volume depletion. 4. Altered mental status. 5. Hypokalemia. The patient was admitted to the hospital with hypotension, and we suspect an infection since she was started on vancomycin and meropenem. Mental status: The patient also was altered. By now, this altered mental status is completely resolved. The patient is back to her baseline. Because of the diarrhea that she had in the beginning, we checked a Clostridium difficile toxin that was positive. The patient was started yesterday on Flagyl 500 mg p.o. 3 times per day. Her white cell count is back to normal. In that regard, I think all of this problem was related to this infection. Vancomycin and meropenem have been stopped. Also, blood cultures are negative so far. The patient reports that yesterday she was having bowel movements every 30 minutes and, today, every hour or hour and half. Definitely, this patient needs to be in the hospital at least for a few more days. Currently, this patient is receiving normal saline at 75 mL/hour. We will continue with the some treatment. Blood pressure is okay. When this patient is having definitely more spread bowel movements, then we can start thinking about discharging this patient. I think it would be better for her to be sent to a rehab facility considering that she is feeling very weak and not able to walk around by herself.
[2016-10-15] MEDS: ZOCOR PO SCH (20:40)
[2016-10-15] MEDS: ULTRAM PO PRN (22:17)
[2016-10-16] MEDS: NS 1,000 ML IV SCH ×2 (02:12→18:57)
[2016-10-16] MEDS: TYLENOL PO PRN (04:48)
[2016-10-16] MEDS: HUMALOG SUBQ SCH ×5 (06:32→21:19)
[2016-10-16 07:11] LABS: MANUAL DIFF NEEDED? NO
[2016-10-16 07:23] LABS: BASO% 0.4 % (0.0-0.8); EOS# 0.14 X1000 (0.0-0.7); EOS% 1.3 % (0.0-10.0); HEMATOCRIT 27.8 % (37.0-47.0); HEMOGLOBIN 9.4 g/dL (12.0-16.0); IMM GRAN# 0.03 X1000 (0.0-0.04); IMM GRAN% 0.3 % (0.0-0.5); LYMPH# 2.13 X1000 (1.2-3.4); LYMPH% 19.2 % (20.5-51.1); MCH 31.9 PG (27-31); MCHC 33.8 g/dL (33-37); MCV 94.2 FL (81-99); MONO# 0.53 X1000 (0.11-0.59); MONO% 4.8 % (1.7-9.3); MPV 10.7 FL (7.4-10.4); PLT 194 X1000 (130-400); RBC 2.95 XMIL (4.2-5.4)
[2016-10-16 07:55] LABS: AGAP 10; BUN 11 mg/dL (8-22); CHLORIDE 109 mmol/L (98-107); COSMO 288; SODIUM 144 mmol/L (136-145); TCO2 25 mmol/L (25-35)
[2016-10-16] MEDS: LYRICA PO SCH ×2 (10:00→21:22)
[2016-10-16] MEDS: THERA M PLUS PO SCH (10:01)
[2016-10-16] MEDS: FLAGYL PO SCH ×3 (10:01→18:57)
[2016-10-16] MEDS: SYNTHROID PO SCH (10:01)
[2016-10-16] MEDS: HEPARIN SUBQ SCH ×2 (10:02→21:18)
[2016-10-16] MEDS: BUSPAR PO SCH ×2 (10:02→21:19)
[2016-10-16] MEDS ORDERED: CALCIUM GLUCONATE 2 GM in NS 100 ML IV ONE (10:30)
[2016-10-16] MEDS: POTASSIUM CHLORIDE 60 MEQ in NS 500 ML IV SCH ×2 (13:53→21:18)
[2016-10-16] MEDS: DYAZIDE PO SCH (15:14)
[2016-10-16] MEDS: VANCOMYCIN ORAL SOLN PO SCH ×2 (15:28→23:12)
--- NOTE | 2016-10-16 18:14 | PROGRESS NOTE ---
DATE: 10/16/2016 SUBJECTIVE: Patient reports still having 1 bowel movement per hour. She denies any dizziness, lightheadedness. No muscle cramps too. OBJECTIVE: Vital Signs: Temperature 97.7 degrees, heart rate 60, respiratory rate 20, blood pressure 143/60, O2 saturation 96% on room air. General Examination: This is a 76-year-old female lying in bed in no acute distress. HEENT: Head is normocephalic, atraumatic. Anicteric sclerae and pale conjunctivae. Mucous membranes moist. Neck: Supple. No JVD noted. No carotid bruits. No lymphadenopathy. No thyromegaly. Cardiovascular: S1, S2 heard. No murmurs, gallops or rubs. Regular rate and rhythm. Respiratory: Clear bilaterally to auscultation. No work of breathing or using accessory muscles. Abdomen: Soft, nontender to palpation. Bowel sounds present hyperactive, no organomegaly. Extremities: No clubbing, cyanosis or edema. Peripheral pulses present in both legs. Neurological: Patient alert, oriented x3. Able to move 4 extremities. Cranial nerves 2 through 12 grossly normal. LABORATORY DATA: White cell count 11.12, hemoglobin 9.4, hematocrit 27.8, platelets 194,000. Sodium 144, potassium 3.0, chloride 109, bicarb 25, BUN 11, creatinine 0.7, calcium 7.0. ASSESSMENT AND PLAN: 1. Clostridium difficile colitis. 2. Hypokalemia. 3. Hypocalcemia. 4. Acute kidney injury. 5. Volume depletion. 6. Altered mental status. PLAN: Patient was admitted to hospital. Patient was diagnosed with C. difficile colitis 2 days ago. She was started on Flagyl 500 mg p.o. t.i.d. Initially she was having bowel movements every 30 minutes and since yesterday and today she is just having 1 bowel movement almost an hour. At this time even though the white cell count is back to normal I plan to add vancomycin to her current treatment. Will keep this patient on IV fluids. Will replete potassium and calcium accordingly. Acute kidney injury is completely resolved. Altered mental status completely resolved too. As soon as this condition is resolved we are waiting for a rehab bed.
[2016-10-16] MEDS ORDERED: DESYREL PO SCH (21:00)
[2016-10-16] MEDS: ZOCOR PO SCH (21:19)
[2016-10-16] MEDS: ULTRAM PO PRN (21:22)
[2016-10-16] MEDS: MYLICON PO PRN (21:23)
[2016-10-17] MEDS: MYLICON PO PRN ×3 (00:46→21:48)
[2016-10-17] MEDS: TYLENOL PO PRN (01:24)
[2016-10-17 06:40] LABS: MANUAL DIFF NEEDED? NO
[2016-10-17 06:48] LABS: BASO% 0.4 % (0.0-0.8); EOS# 0.14 X1000 (0.0-0.7); EOS% 1.5 % (0.0-10.0); HEMATOCRIT 26.9 % (37.0-47.0); IMM GRAN# 0.02 X1000 (0.0-0.04); IMM GRAN% 0.2 % (0.0-0.5); LYMPH# 1.95 X1000 (1.2-3.4); LYMPH% 20.9 % (20.5-51.1); MCH 31.6 PG (27-31); MCHC 33.5 g/dL (33-37); MCV 94.4 FL (81-99); MONO% 5.3 % (1.7-9.3); NEUT% 71.7 % (42.2-75.2); PLT 181 X1000 (130-400); RBC 2.85 XMIL (4.2-5.4)
[2016-10-17 07:17] LABS: AGAP 11; BUN 8 mg/dL (8-22); CALCIUM 7.1 mg/dL (8.8-10.2); CHLORIDE 111 mmol/L (98-107); COSMO 284; POTASSIUM 3.5 mmol/L (3.5-5.1); SODIUM 144 mmol/L (136-145); TCO2 22 mmol/L (25-35)
[2016-10-17] MEDS: NS 1,000 ML IV SCH ×2 (09:28→19:07)
[2016-10-17] MEDS: THERA M PLUS PO SCH (09:29)
[2016-10-17] MEDS: FLAGYL PO SCH ×3 (09:29→19:05)
[2016-10-17] MEDS: BUSPAR PO SCH ×2 (09:29→21:48)
[2016-10-17] MEDS: LYRICA PO SCH ×2 (09:30→21:49)
[2016-10-17] MEDS: SYNTHROID PO SCH (09:30)
[2016-10-17] MEDS: DYAZIDE PO SCH (09:30)
[2016-10-17] MEDS: HEPARIN SUBQ SCH ×2 (09:31→21:49)
[2016-10-17] MEDS: VANCOMYCIN ORAL SOLN PO SCH ×4 (09:37→21:55)
[2016-10-17] MEDS: HUMALOG SUBQ SCH ×3 (12:13→21:49)
--- NOTE | 2016-10-17 14:53 | PROGRESS NOTE ---
DATE: 10/17/2016 SUBJECTIVE: This patient states that she is feeling a little bit better but she is still having bowel movements. So far, she has had 4 liquid bowel movements today. Also, she has been complaining of insomnia. She states that she takes trazodone and pain medication at home to be able to sleep. I will put this patient back on her medications. OBJECTIVE: Vital Signs: Temperature 98.6; pulse 72; respiratory rate 18; blood pressure 149/75; oxygen saturation 98% on room air. HEENT: Head normocephalic. No trauma. PERRLA. Neck: Supple. No JVD. No masses. Central trachea. Chest: Clear to auscultation. No wheezing. No rales. Cardiovascular: RRR. No murmurs. Abdomen: Soft. Mild tenderness to palpation in the epigastric area. Bowel sounds are hyperactive. No organomegaly. Extremities: No clubbing, edema, or cyanosis. Neurological Examination: The patient is alert and oriented x3. No focal neurological deficits. LABORATORIES: WBC 9.3, hemoglobin 9, hematocrit 26.9, platelets 184,000. Sodium 144, potassium 3.5, chloride 111, bicarbonate 22, BUN 8, creatinine 0.6, glucose 84, calcium 7.1. ASSESSMENT AND PLAN: 1. Clostridium difficile colitis. She has been on metronidazole for the past 3 days. She is feeling better, even though she is still having watery bowel movements. Yesterday, vancomycin was added to her medications. 2. Hypokalemia, resolved. 3. Hypocalcemia. The calcium is 7.1, but I will ask tomorrow for albumin. Probably, the hypocalcemia is secondary to hypoalbuminemia. 4. Acute kidney injury, completely resolved. 5. Altered mental status, resolved. This patient is alert and oriented x3. 6. Insomnia. I will readjust the dose of trazodone and I will start this patient on her home medication for pain. I will follow up this patient.
[2016-10-17] MEDS ORDERED: DESYREL PO SCH (21:00)
[2016-10-17] MEDS: PERCOCET-5 PO PRN (21:48)
[2016-10-17] MEDS: ZOCOR PO SCH (21:48)
[2016-10-18] MEDS: VANCOMYCIN ORAL SOLN PO SCH ×2 (02:47→08:18)
[2016-10-18] MEDS: PERCOCET-5 PO PRN ×2 (02:50→08:14)
[2016-10-18 06:34] LABS: MANUAL DIFF NEEDED? NO
[2016-10-18 07:01] LABS: AGAP 10; ALBUMIN 2.3 g/dL (3.5-5.0); ALKALINE PHOSPHATASE 54 U/L (32-104); BUN 8 mg/dL (8-22); CALCIUM 7.8 mg/dL (8.8-10.2); CHLORIDE 105 mmol/L (98-107); COSMO 279; GOT 19 U/L (10-30); GPT 21 U/L (10-36); POTASSIUM 3.4 mmol/L (3.5-5.1); SODIUM 140 mmol/L (136-145); TCO2 25 mmol/L (25-35); TOTAL BILIRUBIN 0.42 mg/dL (0.20-1.00); TOTAL PROTEIN 5.5 g/dL (6.3-8.3)
[2016-10-18] MEDS: HUMALOG SUBQ SCH (07:06)
[2016-10-18 07:26] LABS: BASO% 0.5 % (0.0-0.8); EOS# 0.15 X1000 (0.0-0.7); EOS% 1.9 % (0.0-10.0); HEMATOCRIT 29.5 % (37.0-47.0); HEMOGLOBIN 9.9 g/dL (12.0-16.0); IMM GRAN# 0.02 X1000 (0.0-0.04); IMM GRAN% 0.3 % (0.0-0.5); LYMPH# 1.85 X1000 (1.2-3.4); LYMPH% 23.8 % (20.5-51.1); MCH 31.6 PG (27-31); MCHC 33.6 g/dL (33-37); MCV 94.2 FL (81-99); MONO% 6.4 % (1.7-9.3); MPV 10.7 FL (7.4-10.4); NEUT% 67.1 % (42.2-75.2); PLT 182 X1000 (130-400); RBC 3.13 XMIL (4.2-5.4)
[2016-10-18] MEDS ORDERED: KLOR-CON PO ONE (07:47)
[2016-10-18] MEDS: SYNTHROID PO SCH (08:13)
[2016-10-18] MEDS: THERA M PLUS PO SCH (08:14)
[2016-10-18] MEDS: FLAGYL PO SCH ×2 (08:14→12:43)
[2016-10-18] MEDS: LYRICA PO SCH (08:16)
[2016-10-18] MEDS: BUSPAR PO SCH (08:17)
[2016-10-18] MEDS: HEPARIN SUBQ SCH (08:17)
[2016-10-18] MEDS: DYAZIDE PO SCH (08:17)
[2016-10-18 08:43] VITALS: BP 141/81
[2016-10-18] MEDS: NS 1,000 ML IV SCH ×2 (11:13→11:37)
--- NOTE | 2016-10-18 13:34 | DISCHARGE SUMMARY ---
ADMISSION DATE: 10/12/2016 DISCHARGE DATE: 10/18/2016 CONSULTATIONS: None. PERTINENT PROCEDURES: Head CT showed no acute disease or change from prior. Chest x-ray showed no acute abnormality. C. difficile toxin was positive. DISCHARGE DIAGNOSES: 1. Clostridium difficile colitis. Patient will continue on 14 days worth of treatment with antibiotic. She is being discharged to [facility]. 2. Hypokalemia resolved. 3. Hypocalcemia improved secondary to hypoalbuminemia. 4. Acute kidney injury resolved. 5. Altered mental status resolved. 6. Insomnia with adjustment to trazodone. HOSPITAL COURSE: Briefly, Ms Charisse Peng is a 76-year-old female, who was last admitted to our service on 09/22/2016 for similar complaints. She was discharged from here to rehab. She had been home from rehab since the Sunday prior to admission, but according to the patient, she had been very fatigued and wanted to mostly. Sleep she states that the night before her admission she started having trouble holding her glass of water. She does admit that she has not slept since Sunday. Her family had not been home and she had not recalled drinking very much fluid. The either reason for her last admission was an acute kidney injury. Laboratory data done in the ED showed her to be at a creatinine of 2 again, with an acute kidney injury with a creatinine of 1.8. On discharge she had a creatinine of 1 on 09/25/2016. The patient was also hypertensive with a blood pressure in the 70s and 80s. She was started on dopamine in the ED and sent to [facility]'s ICU for acute renal failure, fluid volume depletion, chronic pain with chronic narcotic use, and continued on a dopamine infusion while being rehydrated. We did wean as tolerated. The patient's leukocytosis was getting worse. She was started on a broad spectrum antibiotic as well as blood cultures being drawn. The patient was still having some lethargy as well as some mental status changes. She was on extremely huge amounts of pain medication considering her age. She was getting MS Contin as well as Percocet 10, so the patient was weaned down to tramadol and they were thinking with her chronic opiate use that can predispose her to development of adrenal insufficiency. So she was provided with 1 dose of hydrocortisone to see if that would help and help improve her blood pressure. She continued to be monitored in the ICU on 10/14/2016. She was transferred to a regular floor. The patient started reporting bouts of diarrhea that were almost constant. Culture was sent down and she did come back positive for C. Difficile, so she was already initiated on Flagyl 3 times a day. Her vancomycin and meropenem that was felt to have started this were stopped. Her blood cultures have remained negative. Her bowel movements went from being constant to every 30 minutes to every hour. Over the last 12 hours the patient has only had 2 bowel movements, I believe, that were semi formed. She is ready to be discharged today to [facility] in which her is also in rehabilitation. DISCHARGE DIET: Diabetic. DISCHARGE MEDICATIONS: 1. Centrum Silver 1 each p.o. daily. 2. Synthroid 150 mg p.o. daily. 3. Zocor 40 mg p.o. at bedtime. 4. Triamterene hydrochlorothiazide 1 each p.o. daily. 5. BuSpar 50 mg p.o. b.i.d. 6. Mylicon 80 mg p.o. 4 times a day. 7. Percocet 10/325 mg p.o. q.6 hours. 8. Tylenol 650 mg p.o. q.6 hours p.r.n. 9. Desyrel 100 mg p.o. at bedtime. 10. Dyazide 1 each p.o. daily. 11. Flagyl 500 mg p.o. t.i.d. 12. Glucophage 500 mg p.o. b.i.d. 13. Vancocin 250 mg p.o. q.6 hours. FOLLOWUP: Patient is being discharged to [facility]. She can follow up with her primary care physician, Dr. Rome Kellogg, in 7-10 days. The patient has been educated on the importance of staying hydrated as well as pain medication use. Patient can return to the ED for any worsening of symptoms. Dictated by RADHA Talamantes for Jefferson Moss MD
[2016-10-18] MEDS ORDERED: VANCOCIN PO SCH (14:00)
[2016-10-18] MEDS ORDERED: CALMOSEPTINE OINTMENT TOP PRN (14:30)
[2016-10-18] MEDS ORDERED: GLUCOPHAGE PO SCH (17:00)
--- NOTE | 2016-11-01 07:36 | DISCHARGE SUMMARY ---
ADMISSION DATE: 10/12/2016 DISCHARGE DATE: 10/18/2016 DISCHARGE SUMMARY ADDENDUM: DIAGNOSES: 1. Septic shock, unspecified organism at the moment of admission. 2. Metabolic encephalopathy, likely secondary to infectious process.
== END 2016-10-18 15:38 | DRG 871 ==
LOC: P.ED 10:46 → ICU 18:01 → 3N 10-14 15:47
PROVIDERS: ATTEND Internal Medicine
PROC: 02HV33Z Insertion of Infusion Device into Superior Vena Cava, Percutaneous Approach (ICD-10-PCS; principal; 2016-10-13)
DX: A41.9 Sepsis, unspecified organism (principal); R65.21 Severe sepsis with septic shock; G93.41 Metabolic encephalopathy; N17.9 Acute kidney failure, unspecified; A04.7 Enterocolitis due to Clostridium difficile; E86.9 Volume depletion, unspecified; E11.65 Type 2 diabetes mellitus with hyperglycemia; E83.51 Hypocalcemia; E87.6 Hypokalemia; G47.00 Insomnia, unspecified; M19.90 Unspecified osteoarthritis, unspecified site; G89.29 Other chronic pain; Z79.899 Other long term (current) drug therapy; Z79.891 Long term (current) use of opiate analgesic
CPT/HCPCS: 36415; 36569; 51702; 70450; 71020; 80048; 80053; 80305; 81001; 82550; 82553; 82948; 83036; 83605; 83880; 84443; 84484; 85025; 85610; 87040; 87324; 93005; 94761; 96361; 96365; 96366; 96375; J0610; J1265; J1644; J1720; J1815; J2185; J2310; J3370; J3480; J7030; J7040; J7050; P9612; 97530-GP; 99285-25

== ENCOUNTER 2016-12-05 16:51 | Inpatient (IN) ==
[2016-12-05] MEDS ORDERED: NS 1,000 ML IV ONE ×2 (17:01→22:16)
[2016-12-05] MEDS ORDERED: ZOFRAN IV ONE (17:04)
[2016-12-05] MEDS ORDERED: TYLENOL PO ONE (17:13)
--- NOTE | 2016-12-05 17:13 | PROVIDER DOCUMENTATION ---
HPI-General Adult - General Chief Complaint: General Adult Stated Complaint: WEAKNESS Time Seen by Provider: 12/05/16 16:59 Source: patient Allergies/Adverse Reactions: Patient Allergies Allergy/AdvReac Type Severity Reaction Status Date / Time No Known Allergies Allergy Verified 12/05/16 17:16 Home Medications: Home Medication List Medication Instructions Recorded Confirmed Last Taken Type Levothyroxine [Synthroid] 150 mg PO DAILY 09/22/16 10/12/16 Unknown History Multivitamins/Minerals [Centrum 1 each PO DAILY 09/22/16 10/12/16 Unknown History Chewable] SIMVAstatin [Zocor] 40 mg PO QHS 09/22/16 10/12/16 09/21/16 21:00 History Buspirone [Buspar] 15 mg PO BID #60 tablet 09/25/16 10/12/16 Unknown Rx Triamterene/Hydrochlorothiazid 1 each PO DAILY 10/15/16 10/15/16 Unknown History [Triamterene-Hctz 75-50 mg Tab] Acetaminophen [Tylenol] 650 mg PO Q6H PRN PRN #0 tablet 10/18/16 Unknown Rx Metformin [Glucophage] 500 mg PO BID CC #120 tablet 10/18/16 Unknown Rx Metronidazole [Flagyl] 500 mg PO TID #24 tablet 10/18/16 Unknown Rx Morphine E.r. [Ms Contin] 15 mg PO BID PRN #45 tablet 10/18/16 Unknown Rx Oxycodone/APAP 10 mg/325 mg 10 mg PO Q6H PRN PRN #60 tablet 10/18/16 Unknown Rx [Percocet-10] Simethicone Chew [Mylicon] 80 mg PO 4XDAY PRN PRN #0 tablet 10/18/16 Unknown Rx Trazodone [Desyrel] 100 mg PO QHS #60 tablet 10/18/16 Unknown Rx Triamterene/Hctz [Dyazide] 1 each PO DAILY #0 capsule 10/18/16 Unknown Rx Vancomycin [Vancocin] 250 mg PO Q6HR #32 capsule 10/18/16 Unknown Rx - History of Present Illness -Gen Adult Nature of Presenting Problems: Pt comes in from [facility]. She is a poor historian with very vague general complaints and no real report from [facility]. No family at bedside. She is oriented to person and somewhat to place. She doesn't have a specific complaint at this time. But, Per the EMS she complained of ABD pain, nausea, hx of C-diff , and questionable CP. Review of Systems - Adult - REVIEW OF SYSTEMS - ADULT ROS:: limited per condition Constitutional: reports: no symptoms reported. denies: chills, fever, fatique, night sweats, weight gain, weight loss, other Eyes: reports: no symptoms reported. denies: decreased vision, blurred vision, redness Ears, Nose, Mouth & Throat: reports: no symptoms reported. denies: ear discharge, epistaxis, sinus problem, loose teeth, mouth/dental pain Cardiovascular: reports: see HPI, chest pain. denies: edema, heart murmur, orthopnea, palpitations, poor circulation, PND, syncope Respiratory: reports: no symptoms reported. denies: see HPI, cough, dyspnea on exertion, excessive sputum production, hemoptysis, pleurisy, wheezing Gastrointestinal: reports: see HPI, abdominal pain, diarrhea, nausea. denies: hematemesis, constipation, difficulty swallowing, frequent heartburn, poor appetite, rectal bleeding, vomiting Genitourinary: reports: no symptoms reported. denies: dysuria, frequency, flank pain, hesitency, incontinence, urinary retention, urgency Musculoskeletal: reports: no symptoms reported. denies: bone pain, back pain, frequent leg cramps, joint pain, muscle aches, muscle weakness, neck pain Integumentary: reports: no symptoms reported. denies: hives, hair loss, itching , mole changes, rash, skin sores/ulcer, skin thickening Neurological: reports: no symptoms reported. denies: ataxia, dizziness/vertigo , headache/migraines, numbness, paresthesia, slurred speech, syncope, tremors Psychiatric: reports: no symptoms reported. denies: anxiety, anti-depressant use, alcohol/drug dependence, depression, emotional problems, panic attacks, suicidal thoughts Endocrine: reports: no symptoms reported. denies: change in skin pigment, excessive sweating, goiter, heat intolerance, increased thirst Hematologic/Lymphatic: reports: no symptoms reported. denies: blood clots, easy bruising, lymphedema, swollen lymph nodes, transfusions Allergic/Immunologic: reports: no symptoms reported. denies: allergic reactions , asthma, food allergy, frequent infections, hives, positive PPD, urticaria All Other Systems: Reviewed and Negative Past History - Adult - PAST MEDICAL HISTORY-ADULT Review of Records: reports: Old Records Reviewed, Nursing Assessment Review, Medications Reviewed, Social history reviewed & non-contributory. Major Childhood Illnesses: reports: denies history Cardiovascular: reports: HTN Respiratory: reports: denies history Gastrointestinal: reports: denies history Obstetrical/Gynecological: reports: denies history Genitourinary: reports: denies history Musculoskeletal: reports: denies history Neurological: reports: denies history Endocrine/Immune: reports: Diabetes Other Conditions: reports: denies history - PRIOR SURGERIES/PROCEDURES Surgical/Procedure History: reports: hysterectomy - IMMUNIZATION STATUS Childhood Immunizations: See Nurse Assessment Flu Vaccine: See Nurse Assessment - FAMILY HISTORY Family History: reviewed, not pertinent - SOCIAL HISTORY Smoking: denies Substance Use: none/never Alcohol Use Frequency: never Living Situation: care facility Physical Exam-General - PHYSICAL EXAM-ADULT Initial Vital Signs Reviewed: Yes - CONSTITUTIONAL General Appearance: mild distress, slow to respond (oriented to person somewhat to place) - EYES Eyes: PERRL/EOMI, pink conjunctivae - HEAD, EARS, NOSE, MOUTH & THROAT HENMT: normocephalic/atraumatic, moist mucous membranes, normal ENT inspection, TMs normal, pharynx normal - NECK Neck: non-tender, full range of motion, supple, normal inspection - RESPIRATORY Respiratory: chest non-tender, lungs clear, normal breath sounds, no pleuratic chest pain, no respiratory distress, no accessory muscle use - CARDIOVASCULAR Cardiovascular: normal peripheral pulses, regular rate, rhythm, no edema, no gallop, no JVD, no murmur - GASTROINTESTINAL (ABDOMEN) Abdominal Exam: normal bowel sounds, non tender, soft, no organomegaly, no pulsatile mass - LYMPHATIC Lymphatic: no adenopathy - MUSCULOSKELETAL Back Exam: normal inspection, no CVA tenderness, no vertebral tenderness Extremity: normal range of motion, non-tender, normal gait, normal inspection, no pedal edema, no calf tenderness, normal capillary refill, pelvis stable - SKIN Integumentary: normal color, normal turgor, warm/dry - NEUROLOGIC Neurologic: 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, no motor/sensory deficits - PSYCHIATRIC Psych/Mental Status: disoriented x 3 (oriented to person and somewhat to place) , disheveled Progress - PLAN OF CARE/RESULTS Progress/Plan/Lab Results: Orders Category Date Time Status Saline Loc DIRECTED Care 12/05/16 17:00 Ordered NPO Diet 12/05/16 17:00 Ordered AMYLASE [CHEM] Stat Lab 12/05/16 17:00 Uncollected C DIFF TOXIN [STOOL] Stat Lab 12/05/16 17:00 Uncollected CBC WITH ELECTRONIC DIFF [HEME] Stat Lab 12/05/16 17:00 Uncollected CK PROFILE [SP CHEM] Stat Lab 12/05/16 17:03 Uncollected COMPREHENSIVE METABOLIC PANEL [CHEM] Stat Lab 12/05/16 17:00 Uncollected LIPASE [CHEM] Stat Lab 12/05/16 17:00 Uncollected STOOL CULTURE [RM] Stat Lab 12/05/16 17:00 Uncollected TROPONIN T Stat Lab 12/05/16 17:03 Uncollected URINALYSIS W/POSS RFLX CULT [URINALYSIS] Stat Lab 12/05/16 17:00 Uncollected Ns 1000 ml IV Bolus X1 Med 12/05/16 17:01 Ordered 0.9% Sodium Chloride Inj [Ns] 1,000 ml IV 999 mls/hr Ondansetron [Zofran] Med 12/05/16 17:04 Once 4 mg IV NOW ONE EKG [EKG] Stat Ther 12/05/16 17:03 Ordered Result Diagrams: 12/05/16 17:15 12/05/16 17:15 - CONSULTS/PCP/HOSPITALIST Notification #1 *Consult/PCP/Hospitalist*: penot Time Discussed: 18:41 Consult Disposition: Will see in ED, Admit Departure - Departure Time of Disposition Decision: 18:40 DIAGNOSIS: Tremors of nervous system, Colitis Altered mental status Qualifiers: Altered mental status type: disorientation Qualified Code(s): R41.0 - Disorientation, unspecified Disposition: HOME 01 Certified Medical Emergency: Emergent Condition: Good Additional Freetext Instructions: ED Follow Up Instructions: You have been treated by a care provider in the Emergency Department. These instructions are being provided to you so you can have an understanding of how to care for yourself upon discharge. Upon discharge from the Emergency Department, you are responsible for making arrangements for follow-up care by a physician of your choice. Take all prescribed medications as directed. Return to the Emergency Department immediately for any new or worsening symptoms. You may call the Physician Referral phone number at [phone] to obtain a list of Physicians who are taking new patients. Attestation - Physician/ ADELITA Attestation Patient care was provided by Advanced Practice Provider:: Yes Advanced Practice Provider:: Rachael Hutton Advanced Practice Provider documentation review:: The Mid-level provider documentation, treatment plan and medical decision making was reviewed by the physician who agrees with all treatment and medical decision making by the MLP.
[2016-12-05 17:22] LABS: MANUAL DIFF NEEDED? NO
[2016-12-05 17:27] LABS: BASO% 0.2 % (0.0-0.8); EOS# 0.03 X1000 (0.0-0.7); EOS% 0.2 % (0.0-10.0); HEMATOCRIT 39.7 % (37.0-47.0); HEMOGLOBIN 13.3 g/dL (12.0-16.0); IMM GRAN# 0.04 X1000 (0.0-0.04); IMM GRAN% 0.3 % (0.0-0.5); LYMPH# 3.36 X1000 (1.2-3.4); LYMPH% 22.2 % (20.5-51.1); MCH 31.7 PG (27-31); MCHC 33.5 g/dL (33-37); MCV 94.7 FL (81-99); MONO% 6.6 % (1.7-9.3); MPV 10.1 FL (7.4-10.4); NEUT% 70.5 % (42.2-75.2); PLT 243 X1000 (130-400); RBC 4.19 XMIL (4.2-5.4)
[2016-12-05 17:52] LABS: URINE CULTURE NEEDED? NO; URINE MICRO REVIEW NEEDED? NO; URINE SOURCE CATH
[2016-12-05 18:01] LABS: BILIRUBIN URINE NEGATIVE (NEGATIVE); BLOOD URINE NEGATIVE (NEGATIVE); COLOR YELLOW; GLUCOSE URINE NEGATIVE (NEGATIVE); LEUKOCYTES URINE NEGATIVE (NEGATIVE); NITRITE URINE NEGATIVE (NEGATIVE); PH URINE 6.5; PROTEIN URINE NEGATIVE (NEGATIVE); SP GRAVITY URINE 1.012; TURBIDITY URINE CLEAR (CLEAR); UROBILINOGEN URINE NORMAL (NORMAL)
[2016-12-05 18:02] LABS: UR EPITHELIAL CELLS <10 /HPF (<10); URINE BACTERIA NEGATIVE /HPF; URINE RBC <10 /HPF (<10); URINE WBC <10 /HPF (<10)
[2016-12-05 18:04] LABS: AGAP 14; ALBUMIN 3.9 g/dL (3.5-5.0); ALKALINE PHOSPHATASE 51 U/L (32-104); AMYLASE 31 U/L (20-200); BUN 11 mg/dL (8-22); CALCIUM 8.6 mg/dL (8.8-10.2); CHLORIDE 89 mmol/L (98-107); COSMO 265; GOT 19 U/L (10-30); GPT 11 U/L (10-36); LIPASE 11 U/L (13-60); POTASSIUM 3.2 mmol/L (3.5-5.1); SODIUM 133 mmol/L (136-145); TCO2 30 mmol/L (25-35); TOTAL BILIRUBIN 0.74 mg/dL (0.20-1.00); TOTAL PROTEIN 8.2 g/dL (6.3-8.3)
[2016-12-05] MEDS ORDERED: FLAGYL 500 MG/NS 500 MG/100 ML IVPB IV ONE (18:25)
--- NOTE | 2016-12-05 19:44 | HISTORY AND PHYSICAL ---
CHIEF COMPLAINT: Was fever and abdominal pain. HISTORY OF PRESENT ILLNESS: This is a 76-year-old female with history of hypertension, diabetes, hospitalized a couple months ago for C. difficile colitis. She presents today with 24-hour history of abdominal cramping, nausea, diarrhea and a fever up to 103. Other workup was unremarkable. Presumably she had C. difficile colitis and was admitted for that again. Currently she is afebrile. White count is up to 15,000. She really has no other complaints. Fevers, chills positive but no cough, no shortness of breath. No emesis. No bleeding. Again other workup was unremarkable. Patient admitted for febrile illness which is presumed C. difficile colitis recurrent. PAST MEDICAL HISTORY: 1. Hypertension. 2. Diabetes. 3. Chronic pain disorder. 4. Arthritis. PAST SURGICAL HISTORY: Reportedly hysterectomy. 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 ALLERGIES: Reports no known drug allergies. FAMILY HISTORY: Negative except for diabetes in both her parents. By old records they had cancer as well. REVIEW OF SYSTEMS: All other systems are negative except that reviewed and are negative. HOME MEDICATIONS: Acetaminophen, BuSpar 15 b.i.d., Lactinex daily, metformin 500 b.i.d., MS Contin 15 q.12, Zofran 4 q.6, Percocet p.r.n. Lyrica 100 b.i.d., simethicone 80 q.6, trazodone 50 at bedtime, and triamterene /hydrochlorothiazide 75/50. LABORATORY DATA: Her white count is 15. Her potassium is 3.2. Her sodium is 133. Other workup is negative. Lactate was only 2. Chest x-ray was reportedly negative. PROBLEM LIST: This is a 76-year-old [facility] patient who presents with fever, abdominal pain, cramping, diarrhea with recent history of Clostridium difficile with most concern over C. difficile colitis. 1. Febrile illness most likely C. difficile colitis. We will empirically start Flagyl, continue Flagyl and vancomycin. C. difficile has been reordered. We will continue to follow clinically. I am going to screen her for flu although she has no other symptoms except for the fever additionally and rule out pneumonia and urinary tract infection and other sources of fever and we will follow. 2. Diabetes appears to be well controlled. Continue regular medications and monitor. 3. Chronic pain disorder. Will continue her regular medications. DISPOSITION: Pending rest of her workup. We will continue to monitor very closely. cc: Rome Kellogg MD
--- NOTE | 2016-12-05 20:16 | Diag Imaging Result Document ---
PROCEDURE NAME: FLAT/UPRIGHT ABD/1 VIEW CHEST - 12/05/2016 FLAT AND UPRIGHT OF ABDOMEN: There is gas and fluid on the right. The stomach is not distended. There is no evidence of small bowel dilatation. There are surgical clips in the right upper quadrant and rods and screws throughout the lumbar spine. Multiple surgical clips are seen in the pelvis with a staple line low in the midline. IMPRESSION: Nonspecific abdomen. PA CHEST: There is minimal subsegmental atelectasis in the lingula. Otherwise, there has been no significant change since 10/02/2016. IMPRESSION: Minimal lingular atelectasis.
[2016-12-05] MEDS ORDERED: ZOFRAN IV PRN (22:16)
[2016-12-05] MEDS ORDERED: TYLENOL PO PRN (22:16)
[2016-12-05] MEDS: GLUCOPHAGE PO SCH (22:56)
[2016-12-05] MEDS: DESYREL PO SCH (22:56)
[2016-12-05] MEDS: LYRICA PO SCH (22:56)
[2016-12-05] MEDS: BUSPAR PO SCH (22:57)
[2016-12-05] MEDS: PERCOCET-10 PO SCH (22:57)
[2016-12-05] MEDS: POTASSIUM CHLORIDE 20 MEQ/SWI 20 MEQ/100 ML IVPB IV SCH (22:57)
[2016-12-05] MEDS: HUMULIN R SUBQ SCH (23:13)
[2016-12-05] MEDS: MS CONTIN PO SCH (23:14)
[2016-12-06] MEDS: POTASSIUM CHLORIDE 20 MEQ/SWI 20 MEQ/100 ML IVPB IV SCH (01:37)
[2016-12-06] MEDS: MS CONTIN PO SCH ×3 (03:54→22:13)
[2016-12-06] MEDS: PERCOCET-10 PO SCH (06:20)
[2016-12-06] MEDS: HUMULIN R SUBQ SCH ×4 (06:21→22:14)
[2016-12-06 07:03] LABS: HEMATOCRIT 37.8 % (37.0-47.0); HEMOGLOBIN 12.7 g/dL (12.0-16.0); MCH 31.8 PG (27-31); MCHC 33.6 g/dL (33-37); MCV 94.7 FL (81-99); MPV 9.9 FL (7.4-10.4); RBC 3.99 XMIL (4.2-5.4)
[2016-12-06 07:07] LABS: HEMOGLOBIN A1C 5.7 % (4.8-6.0)
[2016-12-06 07:08] LABS: AGAP 13; BUN 11 mg/dL (8-22); CALCIUM 7.9 mg/dL (8.8-10.2); CHLORIDE 97 mmol/L (98-107); COSMO 275; POTASSIUM 3.9 mmol/L (3.5-5.1); SODIUM 137 mmol/L (136-145); TCO2 27 mmol/L (25-35)
[2016-12-06] MEDS: VANCOCIN PO SCH ×3 (09:21→17:20)
[2016-12-06] MEDS: LYRICA PO SCH ×2 (09:22→22:14)
[2016-12-06] MEDS: GLUCOPHAGE PO SCH ×2 (09:22→22:13)
[2016-12-06] MEDS: CULTURELLE PO SCH (09:22)
[2016-12-06] MEDS: BUSPAR PO SCH ×2 (09:22→22:13)
[2016-12-06] MEDS: PATIENT'S OWN MED TOP SCH (11:37)
--- NOTE | 2016-12-06 13:43 | PROGRESS NOTE ---
DATE: 12/06/2016 SUBJECTIVE: Patient is sitting up in bed, no complaints. She stated that she was worried about her who is in the ICU. She states that she became very anxious the night before. She did have some bouts of diarrhea. However, she felt like she did not have C. difficile again, that just she was very nervous and worried about her and this does happen when she gets anxious she will have loose stools. She has not had any diarrhea since admission. No complaints of fever or chills. OBJECTIVE: Vital Signs: Temperature is 98.3 degrees, heart rate 71, respirations 20, blood pressure is 91/46, O2 is 92% on room air. General: Ms. Peng is a very pleasant 76-year-old female, who is sitting up in bed, in no acute distress. HEENT: Atraumatic, normocephalic. PERRLA. Neck supple. Trachea midline. CV: No murmurs, gallops, rubs. Respiratory: Lungs sound clear to auscultation. Nonlabored breathing. GI: Is soft, nontender, nondistended. Positive bowel sounds, 4 quadrants. Extremities: Are negative for edema and bilateral pedal pulses are palpable. Neurologic: The patient is alert, oriented x3. Follows commands. Moves all extremities. LABORATORY DATA: White count is down to 10, hemoglobin 12, hematocrit 37, platelet count is 162,000. Sodium 137, potassium 3.9, BUN 11, creatinine 0.9. Blood glucose was 134. Hemoglobin A1c was 5.7. C. difficile and stool cultures have not been obtained as of yet. Blood cultures are still pending. ASSESSMENT AND PLAN: 1. Febrile illness. However afebrile now possibly secondary to C. difficile colitis. Empirically treating with Flagyl and vancomycin. Still awaiting a stool sample. Her flu screens are negative. Urinalysis negative. Chest x-ray did not show any pneumonia, just atelectasis. 2. Diabetes, controlled. Continue current medications. 3. Chronic pain disorder. Continue regular home medicines. 4. Hypertension, stable. Further evaluation pending hospital course, laboratory data and physician's evaluation. Dictated by RADHA Talamantes for Sammy Mcgowan MD cc: Sammy Mcgowan MD pt examined, agree with above APENOT MTDD
[2016-12-06] MEDS: DESYREL PO SCH (22:13)
[2016-12-06] MEDS: PERCOCET-10 PO PRN (22:20)
[2016-12-07 06:58] LABS: HEMATOCRIT 35.9 % (37.0-47.0); MCH 31.9 PG (27-31); MCHC 33.4 g/dL (33-37); MCV 95.5 FL (81-99); MPV 9.7 FL (7.4-10.4); RBC 3.76 XMIL (4.2-5.4)
[2016-12-07 07:22] LABS: AGAP 13; BUN 11 mg/dL (8-22); CALCIUM 7.7 mg/dL (8.8-10.2); CHLORIDE 96 mmol/L (98-107); COSMO 273; POTASSIUM 3.4 mmol/L (3.5-5.1); SODIUM 137 mmol/L (136-145); TCO2 28 mmol/L (25-35)
[2016-12-07] MEDS: HUMULIN R SUBQ SCH ×4 (07:38→20:45)
[2016-12-07] MEDS: CULTURELLE PO SCH (09:31)
[2016-12-07] MEDS: VANCOCIN PO SCH ×3 (09:31→17:27)
[2016-12-07] MEDS: MS CONTIN PO SCH ×3 (09:31→20:45)
[2016-12-07] MEDS: BUSPAR PO SCH ×2 (09:31→20:44)
[2016-12-07] MEDS: GLUCOPHAGE PO SCH ×2 (09:32→20:45)
[2016-12-07] MEDS: LYRICA PO SCH ×2 (09:32→20:45)
[2016-12-07] MEDS: PATIENT'S OWN MED TOP SCH (09:32)
[2016-12-07] MEDS: PERCOCET-10 PO PRN ×2 (09:36→17:27)
[2016-12-07] MEDS ORDERED: TORADOL IV ONE (18:22)
[2016-12-07] MEDS ORDERED: TORADOL IV PRN (18:22)
[2016-12-07] MEDS: FLAGYL 500 MG/NS 500 MG/100 ML IVPB IV SCH (18:32)
--- NOTE | 2016-12-07 20:20 | PROGRESS NOTE ---
DATE: 12/07/2016 SUBJECTIVE: The patient is still complaining of a lot of pain in her right hip. OBJECTIVE: VITAL SIGNS: Blood pressure 138/74, heart rate 82, respiratory rate 18, temperature 97.8 degrees. Cardiovascular: Regular rate and rhythm. Pulmonary: Bilateral breath sounds. Clear to auscultation. Gastrointestinal: Soft, nontender, nondistended. Bowel sounds are positive. LABORATORY DATA: White count is up a little today 11. Hemoglobin and hematocrit 12 and 35. Rest of testing is negative except C. difficile toxin is positive which we have been suspicious of this admission. PROBLEM LIST: 1. C. difficile colitis. We will continue vancomycin. I am going to add Flagyl since it is still not completely controlled. 2. Right hip pain. We will go ahead and progress with x-ray. She has not had any trauma but she is complaining of significant hip pain and we will see how she does. PT to work with her. 3. Diabetes appears to be well-controlled. Continue to follow closely. cc: Sammy Mcgowan MD
[2016-12-07] MEDS: DESYREL PO SCH (20:45)
[2016-12-08] MEDS: FLAGYL 500 MG/NS 500 MG/100 ML IVPB IV SCH ×4 (01:12→18:28)
[2016-12-08] MEDS: PERCOCET-10 PO PRN ×3 (01:15→22:25)
[2016-12-08] MEDS: HUMULIN R SUBQ SCH ×4 (06:14→22:22)
[2016-12-08 06:56] LABS: HEMATOCRIT 35.8 % (37.0-47.0); HEMOGLOBIN 11.7 g/dL (12.0-16.0); MCHC 32.7 g/dL (33-37); MCV 94.7 FL (81-99); MPV 9.8 FL (7.4-10.4); RBC 3.78 XMIL (4.2-5.4)
[2016-12-08 07:16] LABS: AGAP 12; BUN 15 mg/dL (8-22); CALCIUM 7.6 mg/dL (8.8-10.2); CHLORIDE 97 mmol/L (98-107); COSMO 270; POTASSIUM 3.7 mmol/L (3.5-5.1); SODIUM 135 mmol/L (136-145); TCO2 26 mmol/L (25-35)
--- NOTE | 2016-12-08 09:00 | Diag Imaging Result Document ---
PROCEDURE NAME: XRAY HIP UNILATERAL RT - 12/08/2016 RIGHT HIP, 2 VIEWS: FINDINGS: The study is technically suboptimal due to the patient's body habitus. There is some narrowing of the hip joint space. There is extensive postsurgical change in the visualized portions of the lumbar spine, the sacrum, and the right iliac bone. No evidence of fracture or dislocation is present. IMPRESSION: Degenerative arthritis.
[2016-12-08] MEDS: BUSPAR PO SCH ×2 (09:14→22:21)
[2016-12-08] MEDS: MS CONTIN PO SCH ×2 (09:15→22:20)
[2016-12-08] MEDS: CULTURELLE PO SCH (09:15)
[2016-12-08] MEDS: GLUCOPHAGE PO SCH ×2 (09:15→22:21)
[2016-12-08] MEDS: LYRICA PO SCH ×2 (09:15→22:20)
[2016-12-08] MEDS: VANCOCIN PO SCH ×3 (09:15→17:45)
[2016-12-08] MEDS: PATIENT'S OWN MED TOP SCH (09:15)
[2016-12-08] MEDS ORDERED: SOLU-MEDROL IV ONE (14:21)
[2016-12-08] MEDS ORDERED: NS 250 ML IV ONE (14:37)
--- NOTE | 2016-12-08 14:47 | PROGRESS NOTE ---
DATE: 12/08/2016 SUBJECTIVE: The patient has no focal complaints except for right hip pain. OBJECTIVE: Blood pressure 114/55, heart rate of 75.Cardiovascular: Regular rate and rhythm. Pulmonary: Bilateral breath sounds. Clear to auscultation. GI: Soft, nontender, nondistended. Bowel sounds are positive. LABORATORY DATA: White count 9, hemoglobin and hematocrit 11 and 35, platelets 212,000. Basic was normal. PROBLEM LIST: 1. Clostridium difficile colitis. We will continue vancomycin and Flagyl. 2. Chronic pain disorder. Continue regular medications. 3. Diabetes appears to be stable. 4. Right hip pain. She has got osteoarthritis per her x-rays. We will get ortho's opinion and just evaluate about a possible joint . DISPOSITION: Likely home tomorrow or back to rehab tomorrow. cc: Sammy Mcgowan MD
--- NOTE | 2016-12-08 14:56 | DISCHARGE SUMMARY ---
ADMISSION DATE: 12/05/2016 DISCHARGE DATE: 12/09/2016 DISCHARGE DIAGNOSES: 1. Clostridium difficile colitis, recurrent. 2. Osteoarthritis of the right hip. 3. Diabetes. 4. Chronic pain disorder. Briefly, this is a patient who presented with abdominal pain, nausea, vomiting, diarrhea, fever up to 103, white count of 15,000. She had a recent history of C. difficile and came in for recurrent C. difficile colitis. Other workup was unremarkable including chest x-ray and urine, but repeat stool study was C. difficile positive. Blood cultures and influenza screen were negative. She clinically improved on vancomycin although we also had to add Flagyl to get stability. By the she was afebrile, white count was down to 9.4, and she was felt stable for discharge although she still had several loose stools. So, we watched her another 24 hours. Also complaining of right hip pain. Plain films just showed osteoarthritis, no fracture. DISCHARGE MEDICATIONS: Acetaminophen p.r.n., buspirone 15 b.i.d., Lactinex 2 daily, metformin 500 b.i.d., methyl salicylate p.r.n., MS Contin 15 q.12 which was a home medication, Zofran p.r.n., Percocet 10 q.8h p.r.n. pain, Lyrica 100 b.i.d., simethicone 80/60, Desyrel 50 at bedtime, triamterene hydrochlorothiazide 75/50, Vancocin 250 3 times daily for 2 weeks. DISCHARGE CONDITION: Stable. DISCHARGE TIME: Thirty-two minute discharge. cc: MD Sammy Leal MD
[2016-12-08] MEDS: DESYREL PO SCH (22:21)
[2016-12-09] MEDS: FLAGYL 500 MG/NS 500 MG/100 ML IVPB IV SCH ×4 (01:48→17:34)
[2016-12-09 06:27] LABS: HEMATOCRIT 36.9 % (37.0-47.0); HEMOGLOBIN 12.6 g/dL (12.0-16.0); MCH 31.9 PG (27-31); MCHC 34.1 g/dL (33-37); MCV 93.4 FL (81-99); MPV 9.4 FL (7.4-10.4); RBC 3.95 XMIL (4.2-5.4)
[2016-12-09] MEDS: HUMULIN R SUBQ SCH ×4 (06:29→20:44)
[2016-12-09 06:56] LABS: AGAP 18; BUN 18 mg/dL (8-22); CHLORIDE 95 mmol/L (98-107); COSMO 275; POTASSIUM 4.6 mmol/L (3.5-5.1); SODIUM 136 mmol/L (136-145); TCO2 23 mmol/L (25-35)
[2016-12-09] MEDS: VANCOCIN PO SCH ×3 (10:20→17:34)
[2016-12-09] MEDS: BUSPAR PO SCH ×2 (10:20→20:41)
[2016-12-09] MEDS: CULTURELLE PO SCH (10:20)
[2016-12-09] MEDS: GLUCOPHAGE PO SCH ×2 (10:20→20:41)
[2016-12-09] MEDS: PATIENT'S OWN MED TOP SCH (10:21)
[2016-12-09] MEDS: LYRICA PO SCH ×2 (10:22→20:42)
[2016-12-09] MEDS: MS CONTIN PO SCH ×2 (10:22→20:40)
[2016-12-09] MEDS: PERCOCET-10 PO PRN (10:26)
--- NOTE | 2016-12-09 14:11 | PROGRESS NOTE ---
DATE: 12/09/2016 SUBJECTIVE: Patient has no focal complaints. OBJECTIVE: Vital Signs: Blood pressure 151/71, heart rate of 73, respiratory rate 19, temperature 98 degrees, 94% on room air. Cardiovascular: Regular rate and rhythm. Pulmonary: Bilateral breath sounds. Clear to auscultation. GI: Soft, nontender, nondistended. Bowel sounds are positive. LABORATORY DATA: White count is up a little bit at 11.4, hemoglobin and hematocrit 12 and 36, platelets 228,000. Basic was normal. Sugar was 127. PROBLEM LIST: 1. C. difficile colitis. She is on vancomycin and Flagyl and seems to be doing better. We will continue to monitor. 2. Osteoarthritis of the hip. Per , I believe it is Sree, usually the hip injections are done by fluoroscopy which is probably not going to be able to be done here. We will continue anti-inflammatory medicine. She is getting Toradol. I am just going to go ahead and put her on Mobic and we will follow closely. Any of their recommendations. 3. Hypertension. Appears to be controlled. DISPOSITION: Plan is to go back to rehab. Initially plans were made for today per the family. They said that something had changed and she would have to wait until Sunday because I think there is anticipation that she is going to have to switch her rehabs, but will plan for Sunday. cc: Sammy Mcgowan MD
[2016-12-09] MEDS: MOBIC PO SCH (14:51)
[2016-12-09] MEDS: MAXZIDE 75/50 PO SCH (16:05)
--- NOTE | 2016-12-09 18:06 | DISCHARGE SUMMARY ---
ADMISSION DATE: 12/05/2016 DISCHARGE DATE: A 76-year-old. CHIEF COMPLAINT: Right hip pain. HISTORY: Patient who was hospitalized for medical reasons who complained of right hip pain. Orthopedics was consulted to evaluate. Her primary reason for admission was febrile illness with C. difficile. She also has diabetes. She reports that her right hip has been hurting her for over 20 years. She says that it really started hurting her a lot in August of this year and has just gotten progressively worse. She has not had any treatment for it. She correlates the increased exacerbation the pain relating to discontinuing diclofenac that she had been on for quite some time. She has had no recent injuries, falls that she reports to me. PAST MEDICAL HISTORY: Hypertension, diabetes, C. difficile, known arthritis. PAST SURGICAL HISTORY: She has had a hysterectomy. ALLERGIES: No reported drug allergies. HOME MEDICATIONS: Noted in the chart. This includes metformin, some chronic pain medication with MS Contin, Percocet, Lyrica and some other medications. SOCIAL HISTORY: She resides at a halfway. Nonsmoker. REVIEW OF SYSTEMS: Recently admitted with the above diagnosis. Increase in musculoskeletal pain as described above. No recent chest pain, shortness of breath, dysuria. She has had some GI issues cramping, diarrhea, etc. EXAM: General: Pleasant female who is sitting up in a chair at bedside eating lunch. HEENT: Conjunctivae pink. Mucous membranes are moist. Neck: Without JVD. Heart: Regular with a controlled rhythm. Lungs: Her respirations are nonlabored. Abdomen: Seemed soft and no focal tenderness at least. Extremities: Her right lower extremity is described as the site for pain. She describes the pain as being anterior in the groin area. Pain is exacerbated on exam with internal-external rotation. She has decreased range of motion internal-external rotation especially external rotation. She has no pain over the greater trochanteric bursa. No pain over the SI joint. Straight leg raise appears to be negative. She has good motion of the knee joint with no effusion in the joint. Neurological: She is she is alert, oriented. ASSESSMENT AND PLAN: Right hip degenerative joint disease. I counseled the patient about her x- ray findings. We discussed the options for hip arthritis which included oral medications, surgical intervention and intraarticular injection. If she elected to proceed with any type of intraarticular injection I would expect the success to be short lived and this would need to be done under fluoroscopic guidance by interventional radiology. She is really not interested in any surgical intervention at this point. She is most interested in discussing the resuming diclofenac. Will leave this conversation with her and Dr. Mcgowan. If intraarticular injection is desired then I would recommend consulting interventional radiology. If further surgical conversation is warranted then certainly orthopedics could visit with her again as an outpatient. cc: Clovis Balbuena DO
[2016-12-09] MEDS: DESYREL PO SCH (20:41)
[2016-12-10] MEDS: FLAGYL 500 MG/NS 500 MG/100 ML IVPB IV SCH ×5 (01:04→23:56)
[2016-12-10] MEDS: PERCOCET-10 PO PRN ×3 (03:08→21:10)
[2016-12-10] MEDS: HUMULIN R SUBQ SCH ×4 (06:01→20:03)
[2016-12-10 07:00] LABS: HEMOGLOBIN 11.7 g/dL (12.0-16.0); MCH 31.5 PG (27-31); MCHC 33.4 g/dL (33-37); MCV 94.3 FL (81-99); MPV 9.6 FL (7.4-10.4); RBC 3.71 XMIL (4.2-5.4)
[2016-12-10 07:18] LABS: AGAP 13; BUN 14 mg/dL (8-22); CALCIUM 7.9 mg/dL (8.8-10.2); CHLORIDE 98 mmol/L (98-107); COSMO 277; POTASSIUM 4.1 mmol/L (3.5-5.1); SODIUM 137 mmol/L (136-145); TCO2 26 mmol/L (25-35)
[2016-12-10] MEDS: MOBIC PO SCH (08:09)
[2016-12-10] MEDS: CULTURELLE PO SCH (08:10)
[2016-12-10] MEDS: VANCOCIN PO SCH ×3 (08:10→17:47)
[2016-12-10] MEDS: LYRICA PO SCH ×2 (08:10→19:59)
[2016-12-10] MEDS: GLUCOPHAGE PO SCH ×2 (08:10→19:59)
[2016-12-10] MEDS: MAXZIDE 75/50 PO SCH (08:10)
[2016-12-10] MEDS: PATIENT'S OWN MED TOP SCH (08:11)
[2016-12-10] MEDS: BUSPAR PO SCH ×2 (08:11→19:59)
[2016-12-10] MEDS: MS CONTIN PO SCH ×2 (08:11→19:59)
--- NOTE | 2016-12-10 15:31 | PROGRESS NOTE ---
DATE: 12/10/2016 SUBJECTIVE: The patient has no complaints. She is a little bit pale but no other focal complaints. Diarrhea has essentially resolved. OBJECTIVE: Vital signs: Blood pressure 136/55, heart rate 65, respiratory 16, temperature 97.7 degrees, 98% saturation on room air. Cardiovascular: Regular rate and rhythm. Pulmonary: Bilateral breath sounds. Clear to auscultation. GI: Soft, nontender, nondistended. Bowel sounds are positive. Extremities: No clubbing or cyanosis. Lymphatics: No peripheral edema. LABORATORY DATA: White count 10.9, hemoglobin and hematocrit 11 and 35, platelets 240,000. Chemistry are unremarkable. PROBLEM LIST: 1. Clostridium difficile colitis. She is on vancomycin and she appears to be doing okay. 2. Diabetes is controlled. 3. Osteoarthritis. She is on Mobic. We will continue to monitor. 4. Disposition. Plan to discharge tomorrow. I guess there was an issue. She wanted to change nursing homes or family wanted to change rehab facility so we are adjusting, but she is clinically stable to go home tomorrow and will put in orders to do so. cc: Sammy Mcgowan MD
[2016-12-10] MEDS: DESYREL PO SCH (19:59)
[2016-12-11] MEDS: HUMULIN R SUBQ SCH ×2 (06:01→13:42)
[2016-12-11] MEDS: FLAGYL 500 MG/NS 500 MG/100 ML IVPB IV SCH ×2 (06:03→13:43)
[2016-12-11 07:26] VITALS: BP 145/65
[2016-12-11] MEDS: CULTURELLE PO SCH (08:25)
[2016-12-11] MEDS: BUSPAR PO SCH (08:25)
[2016-12-11] MEDS: GLUCOPHAGE PO SCH (08:25)
[2016-12-11] MEDS: MOBIC PO SCH (08:25)
[2016-12-11] MEDS: LYRICA PO SCH (08:25)
[2016-12-11] MEDS: VANCOCIN PO SCH ×2 (08:25→13:45)
[2016-12-11] MEDS: MS CONTIN PO SCH (08:25)
[2016-12-11] MEDS: MAXZIDE 75/50 PO SCH (08:25)
[2016-12-11] MEDS: PERCOCET-10 PO PRN (08:25)
[2016-12-11] MEDS: PATIENT'S OWN MED TOP SCH (08:26)
--- NOTE | 2016-12-13 14:12 | DISCHARGE SUMMARY ---
ADMISSION DATE: 12/05/2016 DISCHARGE DATE: 12/11/2016 ADDENDUM: Initially had a discharge summary on the . The patient was observed for a couple more days because of planned transfer to a different rehab center. She was still having a little bit of abdominal complaints. In any case, clinically she stabilized. Vital signs are stable. Diarrhea had essentially resolved. Last white count was 10.9, and she was felt stable for discharge. Medications were the same as previously initiated on the last discharge summary. cc: Sammy Mcgowan MD
== END 2016-12-11 13:54 ==
LOC: ED 16:51 → 3N 19:38
PROVIDERS: ATTEND Internal Medicine